=== PATIENT | female | born 1995 ===

== ENCOUNTER 2021-10-15 20:44 | Emergency (ER) | payer OTHER, SELFPAY ==
[2021-10-15 21:01] VITALS: BP 116/77; PULSE 91; RESP 16; TEMP 37.1; O2SAT 99; BMI 32.8
[2021-10-15 21:34] LABS: Strep A Nucleic Acid Negative (Negative)
[2021-10-15 21:36] LABS: COVID-19 Test Negative (Negative)
--- NOTE | 2021-10-15 22:48 | ED_ITS ---
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 Patient is on vaccinated for COVID. No fevers, chills, cough, shortness of breath, chest pain, vomiting, diarrhea Review of Systems Review of Systems: Yes all other systems are reviewed and are negative Constitutional: Constitutional: Reports no additional constitutional complaints, Denies body ache(s), Denies chills, Denies fever(s), Denies headache(s) and Denies weakness Eyes: Eyes: Reports no additional eye complaints and Denies change in vision ENT: Reports system reviewed and no additional complaints, except as documented, Denies dizziness, Reports otalgia, Denies headache(s), Denies nasal congestion, Denies nasal discharge, Denies neck pain and Reports sore throat Cardiovascular: Cardiovascular: Reports no additional cardiovascular complaints, Denies chest pain, Denies leg edema and Denies dyspnea Respiratory: Respiratory: Reports no additional respiratory complaints, Denies cough and Denies dyspnea Gastrointestinal: Gastrointestinal: Reports no additional gastrointestinal complaints, Denies abdominal pain, Denies diarrhea, Denies nausea and Denies vomiting Genitourinary: Genitourinary: Reports no additional female genitourinary complaints and Denies urinary incontinence Musculoskeletal: Musculoskeletal: Reports no additional musculoskeletal complaints, Denies back pain, Denies arthralgias, Denies joint swelling, Denies neck pain, Denies numbness and Denies tingling Integumentary/Breasts: Skin/Breast: Reports system reviewed and no additional complaints, except as docu and Denies rash Neurologic: Reports system reviewed and no additional complaints, except as documented, Denies Abnormal speech present, Denies dizziness, Denies headache(s), Denies numbness, Denies tingling and Denies weakness PMFSH Past Medical History Attestation statement: The following information was validated with the patient. Source: old records reviewed and nursing notes reviewed Social History Social History Advance Directives: No Advance Directives Information Provided: No Patient : No Physical Exam Vital Signs: Vital Signs: Last Vital Signs Temp 98.7 F 10/15/21 21:01 Pulse 91 10/15/21 21:01 Resp 16 10/15/21 21:01 BP 116/77 10/15/21 21:01 Pulse Ox 99 10/15/21 21:01 BMI result Body Mass Index 32.8 Const: General: cooperative, healthy appearing, comfortable and no acute distress Orientation/consciousness: patient oriented x3 Limitations: no limitations HENMT: Head: Yes normal to inspection Ears: hearing grossly normal bilaterally and TM's normal bilaterally General nose exam: Normal external nose present Face and sinus: Yes normal facial exam Mouth: Normal oral and palatal mucosa present Throat: Yes posterior oropharynx normal, Yes tonsils normal and Yes uvula midline Eyes: General: appearance normal, both eyes and all related structures Pupils: Equal, round and reactive pupils present Neck: Neck: Yes normal visual inspection, Yes full ROM, Yes no lymphadenopathy and Yes no meningeal signs Chest: Chest palpation & inspection: normal inspection of the chest Resp: Effort & Inspection: normal respiratory effort Auscultation: clear to auscultation bilaterally Cardio: Rate: regular rate Rhythm: regular rhythm Peripheral pulses: Peripheral pulses 2+ throughout GI: Inspection: Yes normal to inspection Palpation (GI): Soft to palpation and nontender Auscultation: normal bowel sounds Back/Spine/Pelvis: Thoracic/Lumbar Spine: thoracic and lumbar spine normal to inspection Skin: General skin exam: no rashes or lesions noted Neuro: General: patient oriented x3, no meningeal signs, no focal motor deficits and normal sensation to monofilament Cranial nerves: Yes Equal, round and reactive pupils present Cognition (Neuro): normal cognition Speech: No Abnormal speech present Gait exam (Neuro): Normal gait present Motor exam (neuro): 5/5 motor strength present throughout Extrem: General: Yes normal to inspection, Yes no pedal edema and Yes no calf tenderness Course Course Course Narrative: 26-year-old female here with complaints of sore throat and bilateral ear pain 2 days. Exam is benign. Vitals are stable. Rapid strep and COVID are negative. Likely viral syndrome. Reviewed worrisome signs and symptoms of when to return to the emergency department. Comfortable discharge home. Medical Decision Making Medical Records Medical records reviewed: Yes I reviewed the patient's medical records. Lab Data Lab results reviewed: Yes I reviewed the patient's lab results. Labs: Lab Results 10/15/21 10/15/21 Range/Units 21:14 21:14 COVID-19 (SABRINA) Negative (Negative) COVID-19 Clin Com See Note S. pyogenes GrpA ALIYAH Negative (Negative) Discharge Plan Discharge Clinical Impression: Acute viral syndrome Patient Disposition: Home, Self-Care Instructions: Viral Syndrome (ED) Additional Instructions: Covid test is negative Increase fluids, rest Motrin or tylenol for pain or fever Referrals: Physician,Unknown J [Primary Care Provider] - 2 days
== END 2021-10-15 23:45 | disposition home or self-care (01) ==
LOC: HO.ED 23:07
PROVIDERS: Emergency Provider Emergency Medicine
DX: B34.9 Viral infection, unspecified (principal); Z20.822 Contact with and (suspected) exposure to COVID-19; J02.9 Acute pharyngitis, unspecified; H92.03 Otalgia, bilateral
CPT/HCPCS: 87635; 87651; 99283

== ENCOUNTER 2021-11-14 20:20 | Emergency (ER) | payer OTHER, SELFPAY ==
--- NOTE | ~2021-11-14 | XR_ITS ---
EXAMINATION: XR HAND, RIGHT CLINICAL INFORMATION: Right middle finger injury. COMPARISON: None. TECHNIQUE: PA, lateral, and oblique views of the right hand. FINDINGS: No acute fractures or malalignment. Mild nonspecific diffuse soft tissue swelling. No unexpected foreign bodies or subcutaneous air. XR/XR hand RT min 3V IMPRESSION: No acute fractures or malalignment.
[2021-11-14 21:12] VITALS: BP 141/85; PULSE 83; RESP 18; TEMP 36.8; O2SAT 97; BMI 26.6
[2021-11-14] MEDS: Lidocaine HCl 2 % MPF 5 ML VIAL INFILTRATI (22:22)
--- NOTE | 2021-11-14 22:37 | ED_ITS ---
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 Related Data Allergies Allergy/AdvReac Type Severity Reaction Status Date / Time No Known Allergies Allergy Verified 11/14/21 22:14 Review of Systems Review of Systems: Pertinent positives and negatives as stated in HPI 10 point review of systems is otherwise negative. PMFSH Past Medical History Source: nursing notes reviewed Medical History Deaf Social History Social History Advance Directives: No Advance Directives Information Provided: Yes Patient : No Physical Exam Vital Signs: Vital Signs: Last Vital Signs Temp 98.3 F 11/14/21 21:12 Pulse 83 11/14/21 21:12 Resp 18 11/14/21 21:12 BP 141/85 H 11/14/21 21:12 Pulse Ox 97 11/14/21 21:12 BMI result Body Mass Index 26.6 VITAL SIGNS: Reviewed. GENERAL: Well developed, well nourished, in no acute distress. HEAD: Normocephalic/atraumatic EYES: PERRLA, EOMI OROPHARYNX: no oral lesions noted, posterior pharynx clear LUNGS: Normal breath sounds. No adventitious sounds or accessory muscle use. SpO2<97> CARDIOVASCULAR: Regular rate and rhythm without noted murmurs ABDOMEN: Soft, non-tender, non-distended with bowel sounds RIGHT MIDDLE FINGER: Obvious bleeding around the nail bed but nail appears otherwise intact no evidence of deformity, sensation is intact NEUROLOGIC: Alert and oriented x 4. Strength and sensation to light touch were grossly intact x 4. Course Course Course Narrative: 26-year-old female with history and clinical presentation consistent with mild elevation of right middle finger nail bed, a digital block was performed and the fake nail was trimmed down and a portion of the nail was cracked with minimal exposure of the nail bed. Bacitracin was applied to this and it was explained to the patient that she can gently cleanse the area with soap and water but should reapply bacitracin to the nail bed and that she will need to keep that nail wrapped until the no begins to grow and filll in the nail bed. Procedures Nail Trephination Time out: No Location (finger): right Location (toes): third digit Sterile prep: other Procedure successful: Yes Patient tolerated procedure: No Complications Complications: bleeding Nerve Block Nerve Block 1: Time out performed: No Local Anesthetic: lidocaine 2% Amount of anesthesia used (mL): 5 Nerve Blocks: digital Procedure Successful: Yes Patient Tolerated Procedure: well and no complications Complications: bleeding Discharge Plan Discharge Clinical Impression: Injury of nail bed of finger Patient Disposition: Home, Self-Care Instructions: Nail Removal (ED), Nail Avulsion (ED) Additional Instructions: 1. May cleanse area with soap and water. 2. Re-apply antibiotic ointment to the exposed nail bed. 3. Keep pain under control with over the counter Tylenol/Ibuprofen, ice, and keep finger elevated when possible. 4. Follow up with your primary care provider. Return to the ER for any worsening of symptoms. Referrals: Enriqueta Olivares, [facility] [Primary Care Provider] - 2 days
[2021-11-14] MEDS: Ibuprofen 400 MG TABLET PO (23:20)
[2021-11-14] MEDS: Acetaminophen 325 MG TABLET 975 MG PO (23:20)
[2021-11-14] MEDS: Bacitracin Oint 14 GM TUBE 1 APPL TOPICAL (23:26)
--- NOTE | 2021-11-14 23:26 | PC.NURSE ---
PT MIDDLE FINGER NAIL BED CLEANED AND NAIL REMOVED PARTIAL NAIL BY DR NEUMANN. DSD APPLIED WITH ANTIBIOTIC OINTMENT.
== END 2021-11-14 23:29 | disposition home or self-care (01) ==
PROVIDERS: Emergency Provider Student in an Organized Health Care Education/Training Program; PCP Nurse Practitioner Family
DX: S61.302A Unspecified open wound of right middle finger with damage to nail, initial encounter (principal); W22.03XA Walked into furniture, initial encounter; Y93.89 Activity, other specified; Y92.039 Unspecified place in apartment as the place of occurrence of the external cause; Y99.9 Unspecified external cause status
CPT/HCPCS: 11740; 64450; 73130; 99283; 99284

== ENCOUNTER 2023-04-24 11:31 | Outpatient (REF) | payer MEDICAID, SELFPAY ==
[2023-04-24 14:06] LABS: Estimated Average Glucose 111 mg/dL; Hemoglobin A1c % 5.5 %
[2023-04-24 14:08] LABS: Alanine Aminotransferase 110 U/L (0-31); Albumin Level 4.3 g/dL (3.5-5.0); Alkaline Phosphatase 118 U/L (39-117); Aspartate Amino Transferase 58 U/L (5-31); Bilirubin Direct < 0.2 mg/dL (0.0-0.5); Bilirubin Total 0.1 mg/dL (0.0-1.0); Cholesterol 283 mg/dL; HDL Cholesterol 34 mg/dL; LDL Cholesterol Calculated 193 mg/dl; Total Protein 7.3 g/dL (6.5-8.0); Triglycerides 284 mg/dL
[2023-04-24 14:23] LABS: Vitamin D 25-OH Total 18.6 ng/mL (>30)
== END 2023-04-24 11:32 | disposition home or self-care (01) ==
LOC: HO.HHCL 11:31
PROVIDERS: Visit Provider Family Medicine
DX: R74.01 Elevation of levels of liver transaminase levels (principal); R73.03 Prediabetes; E78.5 Hyperlipidemia, unspecified; E55.9 Vitamin D deficiency, unspecified
CPT/HCPCS: 36415; 80061; 80076; 82306; 83036

== ENCOUNTER 2023-05-20 12:24 | Outpatient (REF) | payer MEDICAID, SELFPAY ==
[2023-05-20 14:41] LABS: Alanine Aminotransferase 97 U/L (0-31); Albumin Level 4.4 g/dL (3.5-5.0); Alkaline Phosphatase 113 U/L (39-117); Aspartate Amino Transferase 38 U/L (5-31); Bilirubin Direct 0.1 mg/dL (0.0-0.5); Bilirubin Total 0.3 mg/dL (0.0-1.0); Total Protein 7.6 g/dL (6.5-8.0)
[2023-05-20 14:42] LABS: Ferritin 69 ng/mL (10-122)
[2023-05-21 05:59] LABS: HBS Num1 1.31 mIU/mL (0-7.99); HBc Num1 0.94 S/CO (0.00-0.79); HBsAGNum1 0.37 S/CO (0.00-0.99); Hepatitis B Surface Antigen Negative (Negative); ~HepC Num1 0.08 S/CO (0.00-0.79); ~Hepatitis B Surface Antibody NONREACTIVE (Nonreactive); ~Hepatitis C Antibody Nonreactive (Nonreactive)
[2023-05-21 07:09] LABS: HBc Num2 0.95 S/CO; HBc Num3 0.95 S/CO; Hepatitis B Core Antibody Nonreactive (Nonreactive)
[2023-05-25 13:48] LABS: SM/Ribonucleoprotein Ab <1.0 NEG AI (<1.0 NEG); Smith Protein <1.0 NEG AI (<1.0 NEG)
== END 2023-05-20 12:25 | disposition home or self-care (01) ==
LOC: HO.HHCL 12:24
PROVIDERS: Visit Provider Family Medicine
DX: R74.01 Elevation of levels of liver transaminase levels (principal)
CPT/HCPCS: 36415; 80076; 82728; 86235; 86704; 86706; 86803; 87340

== ENCOUNTER 2023-06-02 08:33 | Outpatient (REF) | payer MEDICAID, SELFPAY ==
--- NOTE | ~2023-06-02 | US_ITS ---
EXAMINATION: US ABDOMEN COMPLETE CLINICAL INFORMATION: Elevated liver transaminase levels. COMPARISON: None available. TECHNIQUE: Real-time imaging of the abdominal viscera. FINDINGS: PANCREAS: Not well visualized due to bowel gas ABDOMINAL AORTA: The proximal, mid, and distal segments are normal in caliber. INFERIOR VENA CAVA: Visualized portions are normal. LIVER: Liver echotexture is slightly increased. Liver is contour.. No focal hepatic lesion. There is no intrahepatic biliary duct dilatation seen. GALLBLADDER: Normal. The gallbladder is physiologically distended without evidence of stones, sludge, polyps, wall thickening or pericholecystic fluid. COMMON BILE DUCT: Normal in caliber measuring 0.24 cm in diameter. RIGHT KIDNEY: Normal. No hydronephrosis. No renal calculi or focal parenchymal lesions. The kidney measures 11.5 cm in maximum dimension. LEFT KIDNEY: Normal. No hydronephrosis. No renal calculi or focal parenchymal lesions. The kidney measures 11.1 cm in maximum dimension. SPLEEN: Normal. The spleen measures 10.3 cm in maximum dimension. FREE FLUID: None. US/US abdomen complete IMPRESSION: Slowly echogenic liver probably representing mild fatty infiltration. Limited visualization of the pancreas
== END 2023-06-02 08:34 | disposition home or self-care (01) ==
LOC: HO.US 08:33
PROVIDERS: Visit Provider Family Medicine
DX: R74.01 Elevation of levels of liver transaminase levels (principal)
CPT/HCPCS: 76700

== ENCOUNTER 2023-07-27 18:32 | Emergency (ER) | payer MEDICAID, SELFPAY ==
--- NOTE | 2023-07-27 19:19 | ED_ITS ---
HPI - General Adult General Chief complaint: Upper Respiratory Symptoms Stated complaint: ?Covid Time Seen by Provider: 07/27/23 21:36 Source: patient Mode of arrival: ambulatory Limitations: no limitations History of Present Illness HPI narrative: 28 yo female no sig PMH not UTD on covid shots here with family of 4 has sore throat since Thursday but eating and drinking normally no CP/SOB. has COVID concerned for covid as well. MD complaint: URI symptoms Onset (ago): day(s) (started Thursday ) Location: mouth Radiation: non-radiation Severity: mild Quality: aching Pain Consistency: intermittent Relieving factors: none Exacerbating factors: other (swallowing) Associated symptoms: denies other symptoms Treatments prior to arrival: none Related Data Allergies Allergy/AdvReac Type Severity Reaction Status Date / Time No Known Allergies Allergy Verified 11/14/21 22:14 Review of Systems Review of Systems: Constitutional : no Fever, no Chills, no fatigue, no Malaise ENT/Mouth : no sore throat, positive runny nose Eyes: No Discharge Cardiovascular : No Chest Pain, No SOB Respiratory : pos Cough, No Sputum Gastrointestinal : No Nausea, No Vomiting, No Diarrhea Genitourinary : No Dysuria, No Urinary Frequency Musculoskeletal : no Myalgia Skin : No rash Neuro : No Headache All other systems reviewed and are negative [facility] Past Medical History Medical History Deaf Social History Social History (Updated 07/27/23 @ 22:16 by María White DO) Patient Tobacco Use Status: Never used Tobacco Physical Exam ED Vital Signs: Vital Signs - 24 hr 07/27/23 19:27 Temperature 98.0 F Pulse Rate 81 Respiratory Rate 18 Blood Pressure 134/89 Pulse Oximetry 97 Oxygen Delivery Method Room Air BMI result Body Mass Index 34.2 Appearance: Alert. Oriented X3. No acute distress. Eyes: Pupils equal, round and reactive to light. ENT: Pharynx normal. TMs normal bilaterally Neck: Normal inspection. Neck supple. CVS: Normal heart rate and rhythm. Pulses normal. Respiratory: No respiratory distress. Breath sounds normal. Abdomen: Soft and nontender. Skin: Skin warm and dry. Normal skin color. Normal skin turgor. Extremities: No lower extremity edema. Neuro: Oriented X 3. No motor deficit. No sensory deficit. Course Course Course Narrative: This is an RME: Additional HPI, ROS, PE not included below will be deferred to primary provider. This is a [id number] (ASL) presenting to the emergency department with complaints of sore throat. +sick contacts with covid at home. No fever or cough. Plan: COVID/RSV/FLU, strep test Medical Decision Making Medical Decision Making MDM Narrative: 28 yo female hx of hearing impaired not UTD on covid here with c/o sore throat since Thursday - normal VS, eating and drinking in ED - hsuband has COVID here with ?if she and children are positive at this time well hydrated, clear lungs will send off test and DC home. Differential Diagnosis Differential Diagnoses: The differential diagnosis associated with the presentation includes URI, covid, viral infection Admission/Observation Consideration of admission/observation: Escalation of care including admission/observation considered not toxic, stable VS, no hypoxia - send home with precautions Lab Data MDM Lab Attestation statement: I reviewed the patient's lab results. Labs: Lab Results 07/27/23 Range/Units 19:43 Influenza Type A (PCR) NEGATIVE (Negative) Influenza Type B (PCR) NEGATIVE (Negative) RSV RNA Qual (PCR) NEGATIVE (Negative) SARS-CoV-2 RNA (RT-PCR) NEGATIVE (Negative) S. pyogenes GrpA ALIYAH Negative (Negative) Independent Historian Clinical information obtained from an independent historian. History obtained from or confirmed by: Spouse Discharge Plan Discharge Clinical Impression: Upper respiratory infection Qualifiers: URI type: unspecified URI Qualified Code(s): J06.9 - Acute upper respiratory infection, unspecified Patient Disposition: Home, Self-Care Instructions: Upper Respiratory Infection (ED) Additional Instructions: negative for covid/flu and RSV return for worsening symptoms - chest pain, difficulty breathing inability to eat or drink or any other concerns Stand Alone Forms: Work/School Release
[2023-07-27 19:27] VITALS: BP 134/89; PULSE 81; RESP 18; TEMP 36.7; O2SAT 97; BMI 34.2
[2023-07-27 20:32] LABS: IDNOW Serial# 08D9AD1C; Strep A Nucleic Acid Negative (Negative)
[2023-07-27 20:43] LABS: Influenza A PCR NEGATIVE (Negative); Influenza B PCR NEGATIVE (Negative); Resp Syncy Virus RNA Qual PCR NEGATIVE (Negative); SARS COV2 PCR INHOUSE NEGATIVE (Negative)
[2023-07-27 22:13] VITALS: BP 110/65; PULSE 95; RESP 18; TEMP 36.8; O2SAT 98
[2023-07-28 00:56] VITALS: RESP 20
--- NOTE | 2023-07-28 00:57 | PC.NURSE ---
pt a&ox3. respirations even and unlabored, pt reports wanting to be seen for covid test.
[2023-08-21 08:53] LABS: HPV mRNA E6/E7 rflx Not Detected (Not Detected)
== END 2023-07-28 00:58 | disposition home or self-care (01) ==
PROVIDERS: Family Medicine; Physician Assistant Medical; Emergency Provider Emergency Medicine
DX: J06.9 Acute upper respiratory infection, unspecified (principal); J02.9 Acute pharyngitis, unspecified; Z20.822 Contact with and (suspected) exposure to COVID-19; Z20.828 Contact with and (suspected) exposure to other viral communicable diseases
CPT/HCPCS: 0241U; 0353U; 87651; 99283; 99284

== ENCOUNTER 2023-08-14 | Outpatient (REF) | payer MEDICAID, SELFPAY ==
[2023-08-14 16:19] LABS: CT PCR NOT DETECTED (Not Detect.); NG PCR NOT DETECTED (Not Detect.)
== END 2023-08-14 00:01 | disposition home or self-care (01) ==
LOC: HO.HHCL
PROVIDERS: Visit Provider Family Medicine
DX: Z12.4 Encounter for screening for malignant neoplasm of cervix (principal)
CPT/HCPCS: 0353U; 88142

== ENCOUNTER 2023-08-18 14:15 | Outpatient (REF) | payer MEDICAID, SELFPAY ==
--- NOTE | ~2023-08-18 | XR_ITS ---
EXAMINATION: XR CHEST CLINICAL INFORMATION: SOB, new onset. COMPARISON: None available. TECHNIQUE: 2 views of the chest were obtained. FINDINGS: No significant abnormality is noted involving the heart, lungs, mediastinum, bony thorax or soft tissues. XR/XR chest 2V IMPRESSION: Unremarkable chest examination.
== END 2023-08-18 14:16 | disposition home or self-care (01) ==
LOC: HO.HHCX 14:15
PROVIDERS: Visit Provider Nurse Practitioner Family
DX: R06.02 Shortness of breath (principal)
CPT/HCPCS: 71046

== ENCOUNTER 2023-09-10 10:42 | Outpatient (REF) | payer MEDICAID, SELFPAY ==
[2023-09-10 11:37] LABS: MANUAL DIFF FLAG NO
[2023-09-10 12:03] LABS: Basophils Percent Auto 0.6 % (0-2); Eosinophils Absolute Auto 0.2 X10*3/uL (0.0-0.4); Eosinophils Percent Auto 3.2 % (0-4); Hematocrit 39.9 % (37.0-47.0); Hemoglobin 12.5 g/dl (12.0-16.0); Imm Gran Abs Auto 0.02 X10*3/uL (0.00-0.03); Imm Gran Pct Auto 0.3 % (0.0-0.4); Lymphocytes Absolute Auto 3.2 X10*3/uL (1.2-4.9); Lymphocytes Percent Auto 43.9 % (20-40); Mean Corpuscular HGB Conc 31.3 g/dl (31.0-35.0); Mean Corpuscular Hemoglobin 24.9 pg (27.0-33.0); Mean Corpuscular Volume 79.5 fL (80.0-98.0); Mean Platelet Volume 10.1 fL (9.4-12.3); Monocytes Absolute Auto 0.4 X10*3/uL (0.1-1.2); Monocytes Percent Auto 5.8 % (2-11); Neutrophils Absolute Auto 3.3 x10*3/uL (2.0-8.3); Neutrophils Percent Auto 46.2 % (45-73); Platelet Count 330 X10*3/uL (160-400); Red Blood Count 5.02 X10*6/uL (4.20-5.50); Red Cell Distribution Width 12.9 % (11.0-16.0); White Blood Count 7.2 X10*3/uL (4.8-10.8)
[2023-09-10 12:05] LABS: Estimated Average Glucose 117 mg/dL; Hemoglobin A1c % 5.7 % (<6.0)
[2023-09-10 12:39] LABS: Alanine Aminotransferase 218 U/L (0-31); Albumin Level 4.2 g/dL (3.5-5.0); Alkaline Phosphatase 140 U/L (39-117); Anion Gap 10 (12-20); Aspartate Amino Transferase 82 U/L (5-31); Bilirubin Direct < 0.2 mg/dL (0.0-0.5); Bilirubin Total 0.2 mg/dL (0.0-1.0); Blood Urea Nitrogen 12 mg/dL (9-16); Calcium 9.3 mg/dL (8.4-10.2); Carbon Dioxide 25 mmol/L (22-29); Chloride 108 mmol/L (96-108); Cholesterol 273 mg/dL (<200); Estimated Glomerular Filt Rate > 60; Glucose Random 114 mg/dL (60-115); HDL Cholesterol 38 mg/dL (>40); Magnesium 2.2 mg/dL (1.6-2.6); Potassium 3.8 mmol/L (3.3-5.1); Sodium 139 mmol/L (135-145); TSH reflex Free T4 1.54 uIU/mL (0.32-4.0); Total Protein 7.6 g/dL (6.5-8.0); Triglycerides 421 mg/dL (<150); Vitamin D 25-OH Total 14.2 ng/mL (>30)
== END 2023-09-10 10:43 | disposition home or self-care (01) ==
LOC: HO.HHCL 10:42
PROVIDERS: Visit Provider Family Medicine
DX: E88.810 Metabolic syndrome (principal); R74.01 Elevation of levels of liver transaminase levels; D60.9 Acquired pure red cell aplasia, unspecified; E55.9 Vitamin D deficiency, unspecified
CPT/HCPCS: 36415; 80048; 80061; 80076; 82306; 83036; 83735; 84443; 85025

== ENCOUNTER 2024-01-08 19:57 | Outpatient (REF) | payer MEDICAID, SELFPAY ==
[2024-01-09 13:21] LABS: BV Int Neg Control Negative (Negative); BV Int Pos Control Positive (Positive)
== END 2024-01-08 19:58 | disposition home or self-care (01) ==
LOC: HO.HHCLNP 19:57
PROVIDERS: Visit Provider Emergency Medicine
DX: Z32.00 Encounter for pregnancy test, result unknown (principal)
CPT/HCPCS: 87480; 87510; 87660

== ENCOUNTER 2024-02-03 15:18 | Emergency (ER) | payer MEDICAID, SELFPAY ==
[2024-02-03 15:33] VITALS: BP 106/75; PULSE 95; RESP 18; TEMP 37.2; O2SAT 97; BMI 24.1
--- NOTE | 2024-02-03 15:34 | ED_ITS ---
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 She has been taking Motrin at home. Last dose prior to arrival in ED. She admits to poor PO intake secondary to throat pain. She admits her daughter at home is ill with similar symptoms. No other known sick contacts. Denies difficulty swallowing or difficulty controlling secretions. Denies nausea, vomiting, cough, sputum production, hemoptysis, documented fevers. Related Data Previous Rx's ?Medication ?Instructions ?Recorded benzocaine 15 mg-menthol 2.6 mg 1 bruce mucous membrane Q2-4H PRN 02/03/24 lozenges (Cepacol Sore Throat sore throat #16 ea (benzocaine-menthol)) penicillin V potassium 500 mg 500 mg PO BID 10 days #20 tabs 02/03/24 tablet Allergies Allergy/AdvReac Type Severity Reaction Status Date / Time No Known Allergies Allergy Verified 02/03/24 15:34 Review of Systems Review of Systems: Constitutional: No fever, chills, fatigue, night sweats, weight changes ENT/Mouth: No ear pain, hearing loss, nasal congestion, sinus pain, rhinorrhea, +sore throat, +odynophagia, No dysphagia Eyes: No eye pain, swelling, redness, vision changes, discharge Cardio: No chest pain, palpitations, THOMSON, orthopnea, peripheral edema Pulm: No SOB, cough, sputum, wheezing, dyspnea, hemoptysis GI: No nausea, vomiting, hematemesis, abdominal pain, diarrhea, constipation, hematochezia, melena : No irregular bleeding, dysuria, frequency, urgency, hesitancy, hematuria, flank pain MSK: No back pain, neck pain, joint pain, myalgias Skin: No lesions, rashes Neuro: No weakness, numbness, paresthesias, LOC, dizziness, headache All other systems reviewed and are negative. [facility] Past Medical History Attestation statement: The following information was validated with the patient. Source: old records reviewed and nursing notes reviewed Medical History Deaf Social History Social History Patient Tobacco Use Status: Never used Tobacco Advance Directives: No Advance Directives Information Provided: No Do you have a plan to hurt others: No Plan Physical Exam ED Vital Signs: Vital Signs - 24 hr 02/03/24 15:33 02/03/24 17:27 Temperature 98.9 F 98.9 F Pulse Rate 95 95 Respiratory Rate 18 18 Blood Pressure 106/75 106/75 Pulse Oximetry 97 97 Oxygen Delivery Method Room Air Room Air BMI result Body Mass Index 24.1 Vital signs stable, afebrile Const General: cooperative, healthy appearing, comfortable, no acute distress, alert and awake Orientation/consciousness: patient oriented x3 Limitations: no limitations HENMT Other: + posterior oropharynx erythematous, no edema, uvula is midline, no tonsilar exudates or peritonsillar masses, controlling secretions and speaking in complete sentences. Head: Yes normal to inspection, Yes normocephalic and Yes atraumatic Ears: hearing grossly normal bilaterally, external ears normal, TM's normal b ilaterally, EAC's normal, mastoids normal and no periauricular adenopathy General nose exam: Normal external nose present and No nasal discharge present Face and sinus: Yes normal facial exam and Yes sinuses nontender Eyes General: appearance normal, both eyes and all related structures Pupils: Equal, round and reactive pupils present Neck Other: + no cervical, submandibular or submental LAD. Neck: Yes normal visual inspection and Yes full ROM Resp Effort & Inspection: normal respiratory effort and able to speak in complete se ntences Auscultation: clear to auscultation bilaterally Cardio Rate: regular rate Rhythm: regular rhythm GI Inspection: Yes normal to inspection Palpation (GI): Soft to palpation and nontender Skin General skin exam: no rashes or lesions noted Neuro General: patient oriented x3, gait normal and moves all extremities Cranial nerves: Yes Equal, round and reactive pupils present Extrem General: Yes normal to inspection Course Course Course Narrative: This is a Rapid Medical Examination (RME) performed by Amy Tolentino PA-C in triage. Full HPI, ROS, assessment and treatment plan per primary provider in the Main ED. 28-year-old female here for eval of sweats, generalized weakness, subjective fevers, sore throat x2 days. Her daughters are also ill at home with similar symptoms. Endorses poor p.o. intake due to throat pain. Able to swallow. On exam, bilateral tonsillar hypertrophy and exudates. controlling secretions. Plan: viral and strep swabs ordered. Reevaluation(s) Reevaluation #1: [id number]-- patient has tested positive for strep pharyngitis. She is tested negative for COVID, flu, RSV. These results are consistent with exam findings. Discussed all results with patient. Will send penicillin and Cepacol throat lozenges to pharmacy. She verbalizes understanding. She has been able to tolerate p.o. intake while in ED. Patient has remained stable throughout ED visit today. Discussed worrisome signs and symptoms and when to return to the ED. All questions answered at this time. Patient is agreeable with disposition and stable for discharge. Medical Decision Making Medical Decision Making [facility] Narrative: 28-year-old female with no significant past medical history presents to the ED today for evaluation of generalized weakness, subjective fevers, and sore throat x2 days. Vital signs stable, afebrile. She is nontoxic appearing in no acute distress. On exam, posterior oropharynx erythematous. There is bilateral hypertrophy and tonsillar exudates. Uvula midline. Controlling secretions. Bilateral EACs and TMs intact. Lungs are CTA bilaterally. Differential diagnosis includes viral syndrome, strep pharyngitis. Low suspicion for mono, bronchitis, pneumonia, CONSUMER SERVICES ADVISOR, retropharyngeal abscess, epiglottitis, ARDS. Plan for viral serology and strep swab. Differential Diagnosis Differential Diagnoses: The differential diagnosis associated with the presentation includes as above. Admission/Observation Not indicated Lab Data [facility] Lab Attestation statement: I reviewed the patient's lab results. as above Labs: Lab Results 02/03/24 Range/Units 15:40 Influenza Type A (PCR) NEGATIVE (Negative) Influenza Type B (PCR) NEGATIVE (Negative) RSV RNA Qual (PCR) NEGATIVE (Negative) SARS-CoV-2 RNA (RT-PCR) NEGATIVE (Negative) S. pyogenes GrpA ALIYAH Positive A (Negative) External Record Review External record reviewed: Inpatient record Prescription Management I considered prescription management with: Pain Medication and Antibiotic Critical Care Time Critical Care Time Critical Care Time: No Discharge Plan Discharge Clinical Impression: Acute streptococcal pharyngitis Patient Disposition: Home, Self-Care Instructions: Strep Throat (ED) Additional Instructions: You were seen in the ED today for evaluation of sore throat. You tested negative for covid, flu, and rsv. You tested positive for strep throat. Penicillin is an antibiotic that has been sent to your pharmacy. Take this twice daily for the next 10 days to treat strep throat. Do not stop taking these antibiotics early or miss any doses as this may cause infection to return or worsen. Cepacol throat lozenges have been sent to your pharmacy to help with throat pain. You may also purchase [id number] chloraseptic spray to numb your throat. Take Tylenol and ibuprofen as needed for body aches or fevers. Make sure to change your toothbrush as this contains bacteria. Strep throat is contagious. If anyone else in your household is exhibiting symptoms, please advise them to come to the ED, urgent care, or to see their primary care provider. Follow up with your primary care provider as needed. Return to the emergency department if your symptoms persist or worsen despite treatment or if you have difficulty swallowing, opening your mouth, or develop a rash. In the case of emergency, call 911.? Prescriptions: New penicillin V potassium 500 mg tablet 500 mg PO BID 10 Days Qty: 20 0RF Cepacol Sore Throat (danielito-men) 15-2.6 mg lozenge 1 bruce mucous membrane Q2-4H PRN (Reason: sore throat) Qty: 16 0RF Referrals: [facility] [Primary Care Provider] - Stand Alone Forms: Work/School Release Interventions: ED Discharge Assessment Last Done: 02/03/24 17:27 Discharge Date/Time: 02/03/24 17:28 Print Language: Peruvian Sign Language
[2024-02-03 16:00] LABS: IDNOW Serial# 08D9AD1C; Strep A Nucleic Acid Positive (Negative)
[2024-02-03 16:55] LABS: Influenza A PCR NEGATIVE (Negative); Influenza B PCR NEGATIVE (Negative); Resp Syncy Virus RNA Qual PCR NEGATIVE (Negative); SARS COV2 PCR INHOUSE NEGATIVE (Negative)
[2024-02-03 17:27] VITALS: BP 106/75; PULSE 95; RESP 18; TEMP 37.2; O2SAT 97
== END 2024-02-03 17:28 | disposition home or self-care (01) ==
PROVIDERS: Physician Assistant Medical; Emergency Provider Emergency Medicine
DX: J02.0 Streptococcal pharyngitis (principal); M79.10 Myalgia, unspecified site; R42 Dizziness and giddiness; R50.9 Fever, unspecified; Z11.52 Encounter for screening for COVID-19; Z20.811 Contact with and (suspected) exposure to meningococcus
CPT/HCPCS: 0241U; 87651; 99282; 99283

== ENCOUNTER 2024-02-23 16:05 | Emergency (ER) | payer MEDICAID, SELFPAY ==
--- NOTE | 2024-02-23 16:34 | ED_ITS ---
HPI - General Adult General Chief complaint: General Medical Stated complaint: throat pain/hard to breathe Time Seen by Provider: 02/23/24 18:21 Source: patient Mode of arrival: ambulatory Limitations: other (patient is deaf, all communication occurred in writing) History of Present Illness ED Provider: Catarina Collier PA-C HPI narrative: Patient is a 28 year old assigned female at with a history of being deaf presenting to the emergency department today with a sore throat and concern for a recurrence of strep throat. Patient writes that she has a continued sore throat. Patient writes that she had strep throat on 02/03/2024, finished her antibiotics, but the sore throat has returned. Patient denies any dizziness, lightheadedness, abdominal pain, nausea, vomiting, fever, chills, blurry vision, double vision, loss of vision, chest pain, difficulty breathing, shortness of breath, back pain, night sweats, pain with urination, increased urinary frequency, increased urinary urgency, blood in her urine or stool, syncope or a near syncopal episode, recent trauma or falls, bowel incontinence, bladder incontinence, bowel retention, bladder retention, or any other complaints at this time. Relieving factors: none Exacerbating factors: none Associated symptoms: denies other symptoms Treatments prior to arrival: none Related Data Previous Rx's ?Medication ?Instructions ?Recorded benzocaine 15 mg-menthol 2.6 mg 1 bruce mucous membrane Q2-4H PRN 02/03/24 lozenges (Cepacol Sore Throat sore throat #16 ea (benzocaine-menthol)) penicillin V potassium 500 mg 500 mg PO BID 10 days #20 tabs 02/03/24 tablet amoxicillin 500 mg capsule 500 mg PO BID 10 days #20 caps 02/23/24 Allergies Allergy/AdvReac Type Severity Reaction Status Date / Time No Known Allergies Allergy Verified 02/23/24 16:44 Review of Systems Constitutional: Constitutional: Reports no additional constitutional complaints, Denies chills, Denies fever(s) and Denies night sweats Eyes: Eyes: Reports no additional eye complaints, Denies blurry vision, Denies change in vision, Denies diplopia, Denies eye discharge, Denies loss of vision and Denies eye pain ENT: Denies dizziness, Reports hearing loss (chronic for patient) and Reports sore throat Cardiovascular: Cardiovascular: Reports no additional cardiovascular complaints, Denies chest pain, Denies lightheadedness, Denies Loss of Consciousness and Denies dyspnea Respiratory: Respiratory: Reports no additional respiratory complaints and Denies dyspnea Gastrointestinal: Gastrointestinal: Reports no additional gastrointestinal complaints, Denies abdominal pain, Denies melena, Denies hematochezia, Denies c hange in bowel habits and Denies change in stool character Genitourinary: Genitourinary: Denies hematuria, Denies urinary frequency, Denies dysuria, Denies urinary incontinence, Denies urinary hesitancy and Denies urinary urgency Musculoskeletal: Musculoskeletal: Reports no additional musculoskeletal complaints, Denies numbness and Denies tingling Neurologic: Denies dizziness, Denies loss of vision, Denies numbness and Denies tingling Psychiatric: Psychiatric: Reports no additional psychiatric complaints Endocrine: Endocrine: Reports no additional endocrine complaints Hematologic/Lymphatic: Hematologic/Lymphatic: Reports no additional hematologic/lymphatic complaints Allergic/Immunologic: Allergic/Immunologic: Reports no additional allergic/immunologic complaints PMFSH Past Medical History Attestation statement: The following information was validated with the patient. Source: old records reviewed and nursing notes reviewed Medical History Deaf Social History Social History Patient Tobacco Use Status: Never used Tobacco Advance Directives: No Advance Directives Information Provided: No Do you have a plan to hurt others: No Plan Physical Exam ED Vital Signs: Vital Signs - 24 hr 02/23/24 16:43 02/23/24 18:38 Temperature 98.2 F 98.2 F Pulse Rate 86 86 Respiratory Rate 18 18 Blood Pressure 118/59 L 118/59 L Pulse Oximetry 94 94 Oxygen Delivery Method Room Air Room Air BMI result Body Mass Index 33.7 Const General: cooperative, no acute distress, alert and awake Nutritional Appearance: well nourished Orientation/consciousness: patient oriented x3 Limitations: no limitations HENMT Head: Yes normal to inspection and Yes atraumatic Ears: external ears normal and other (patient deaf at baseline) General nose exam: Normal external nose present, no nasal discharge noted and no epistaxis Face and sinus: Yes normal facial exam, No abrasion and No laceration Mouth: Normal oral and palatal mucosa present and no drooling Eyes General: appearance normal, both eyes and all related structures Periorbital: periorbital findings normal Eyelids: Yes eyelids normal Conjunctivae: conjunctivae normal Pupils: Equal, round and reactive pupils present EOM: EOMs intact bilaterally Neck Neck: Yes normal visual inspection, Yes full ROM and Yes no lymphadenopathy Chest Chest palpation & inspection: normal inspection of the chest Resp Effort & Inspection: normal respiratory effort and able to speak in complete sentences GI Inspection: Yes normal to inspection Neuro General: patient oriented x3 and moves all extremities Cranial nerves: Yes Equal, round and reactive pupils present Cognition (Neuro): normal cognition Motor exam (neuro): 5/5 motor strength present throughout Sensory Exam: Normal double simultaneous stimulation for sensation Coordination: [id number] test normal Extrem General: Yes normal to inspection, Yes full ROM and Yes capillary refill normal Psych Appearance: grossly normal Mental Status: mental status grossly normal Affect: normal affect Attitude: cooperative Thought process: Normal thought process present Thought content: Normal thought content present Insight: Good insight present (Psych) Course Course Course Narrative: RME performed by Catarina Collier PA-C. Patient is a 28 year old assigned female at presenting to the emergency department with a sore throat and body aches. Patient writes that she has felt generally unwell over the last few days, had strep 3 weeks ago, and is concerned that it has come back. Detailed physical exam and review of systems are deferred to the food counter worker. Swabs ordered. Patient placed back in the waiting room pending room availability and results. Medical Decision Making Medical Decision Making MDM Narrative: Patient is a 28 year old assigned female at with a history of being deaf presenting to the emergency department today with a sore throat. Patient's physical exam was consistent with the patient's baseline. Patient's COVID-19, influenza, and RSV tests were negative. Patient's strep test was positive. I explained my physical exam findings as well as all test results to the patient. I answered all questions asked by the patient. I stressed the importance of the patient taking her medication as prescribed. I stressed the importance of the patient following up with her primary care provider. I stressed the importance of the patient returning to the emergency department immediately if her symptoms were to worsen or if she were to develop any dizziness, shortness of breath, difficulty breathing, chest pain, blurry vision, loss of vision, nausea, vomiting, abdominal pain, fever, chills, back pain, or any other complaints. Patient communicated agreement and understanding with this treatment plan and discharge. Differential Diagnosis Differential Diagnoses: The differential diagnosis associated with the pre sentation includes COVID-19 Influenza RSV Strep pharyngitis Admission/Observation Consideration of admission/observation: Escalation of care including admission/observation considered Patient would have been admitted to the hospital had her work up had any findings where hospital admission was appropriate and her clinical presentation warranted hospital admission. Lab Data [facility] Lab Attestation statement: I reviewed the patient's lab results. My interpretation of these results are in the [facility] Rationale portion of this note. Labs: Lab Results 02/23/24 Range/Units 17:06 Influenza Type A (PCR) NEGATIVE (Negative) Influenza Type B (PCR) NEGATIVE (Negative) RSV RNA Qual (PCR) NEGATIVE (Negative) SARS-CoV-2 RNA (RT-PCR) NEGATIVE (Negative) S. pyogenes GrpA ALIYAH Positive A (Negative) Prescription Management I considered prescription management with: Antibiotic (patient prescribed an antibiotic for strep pharyngitis) Discharge Plan Discharge Clinical Impression: Strep pharyngitis Patient Disposition: Home, Self-Care Instructions: Strep Throat (DC) Additional Instructions: Follow up with your primary care provider. Return to the emergency department immediately if your symptoms worsen or if you develop any dizziness, shortness of breath, difficulty breathing, chest pain, blurry vision, loss of vision, nausea, vomiting, abdominal pain, fever, chills, back pain, or any other comp laints. Prescriptions: New amoxicillin 500 mg capsule 500 mg PO BID 10 Days Qty: 20 0RF No Action penicillin V potassium 500 mg tablet 500 mg PO BID 10 Days Qty: 20 0RF Cepacol Sore Throat (danielito-men) 15-2.6 mg lozenge 1 bruce mucous membrane Q2-4H PRN (Reason: sore throat) Qty: 16 0RF Referrals: [facility] [place] [facility] [place]] (Call to establish and follow up with a primary care provider. If you already have a primary care provider, please follow up with them.) [facility] [place] [facility] [place] Group] [facility] [place] [facility] [[place] Group] Stand Alone Forms: Work/School Release Interventions: ED Discharge Assessment Last Done: 02/23/24 18:38 Discharge Date/Time: 02/23/24 18:39 Print Language: Kos[place] Sign Language
[2024-02-23 16:43] VITALS: BP 118/59; PULSE 86; RESP 18; TEMP 36.8; O2SAT 94; BMI 33.7
[2024-02-23 17:19] LABS: IDNOW Serial# 58CA691E; Strep A Nucleic Acid Positive (Negative)
[2024-02-23 17:51] LABS: Influenza A PCR NEGATIVE (Negative); Influenza B PCR NEGATIVE (Negative); Resp Syncy Virus RNA Qual PCR NEGATIVE (Negative); SARS COV2 PCR INHOUSE NEGATIVE (Negative)
[2024-02-23 18:38] VITALS: BP 118/59; PULSE 86; RESP 18; TEMP 36.8; O2SAT 94
== END 2024-02-23 18:39 | disposition home or self-care (01) ==
PROVIDERS: Physician Assistant Medical; Emergency Provider Emergency Medicine; PCP Family Medicine
DX: J02.0 Streptococcal pharyngitis (principal); Z03.818 Encounter for observation for suspected exposure to other biological agents ruled out
CPT/HCPCS: 0241U; 87651; 99282; 99283

== ENCOUNTER 2024-06-15 11:20 | Outpatient (REF) | payer MEDICAID, SELFPAY ==
[2024-06-15 13:06] LABS: MANUAL DIFF FLAG NO
[2024-06-15 13:24] LABS: Basophils Percent Auto 0.6 % (0-2); Eosinophils Absolute Auto 0.2 X10*3/uL (0.0-0.4); Eosinophils Percent Auto 2.6 % (0-4); Hematocrit 39.7 % (37.0-47.0); Hemoglobin 12.5 g/dl (12.0-16.0); Imm Gran Abs Auto 0.02 X10*3/uL (0.00-0.03); Imm Gran Pct Auto 0.3 % (0.0-0.4); Lymphocytes Absolute Auto 2.5 X10*3/uL (1.2-4.9); Mean Corpuscular HGB Conc 31.5 g/dl (31.0-35.0); Mean Corpuscular Hemoglobin 25.2 pg (27.0-33.0); Mean Corpuscular Volume 79.9 fL (80.0-98.0); Mean Platelet Volume 10.2 fL (9.4-12.3); Monocytes Absolute Auto 0.3 X10*3/uL (0.1-1.2); Monocytes Percent Auto 4.9 % (2-11); Neutrophils Absolute Auto 3.5 x10*3/uL (2.0-8.3); Neutrophils Percent Auto 53.6 % (45-73); Platelet Count 342 X10*3/uL (160-400); Red Blood Count 4.97 X10*6/uL (4.20-5.50); Red Cell Distribution Width 12.7 % (11.0-16.0); White Blood Count 6.6 X10*3/uL (4.8-10.8)
[2024-06-15 13:59] LABS: Estimated Average Glucose 117 mg/dL; Hemoglobin A1c % 5.7 % (<6.0)
[2024-06-15 14:10] LABS: Alanine Aminotransferase 134 U/L (0-31); Albumin Level 4.3 g/dL (3.5-5.0); Alkaline Phosphatase 113 U/L (39-117); Anion Gap 13 (12-20); Aspartate Amino Transferase 57 U/L (5-31); Bilirubin Direct < 0.2 mg/dL (0.0-0.5); Bilirubin Total 0.2 mg/dL (0.0-1.0); Blood Urea Nitrogen 10 mg/dL (9-16); Calcium 9.5 mg/dL (8.4-10.2); Carbon Dioxide 23 mmol/L (22-29); Chloride 107 mmol/L (96-108); Cholesterol 278 mg/dL (<200); Estimated Glomerular Filt Rate > 60; Glucose Random 125 mg/dL (60-115); HDL Cholesterol 42 mg/dL (>40); LDL Cholesterol Calculated 163 mg/dL (<100); Magnesium 2.1 mg/dL (1.6-2.6); Potassium 3.6 mmol/L (3.3-5.1); Sodium 139 mmol/L (135-145); TSH reflex Free T4 1.16 uIU/mL (0.32-4.0); Total Protein 7.6 g/dL (6.5-8.0); Triglycerides 369 mg/dL (<150); Vitamin D 25-OH Total 27.6 ng/mL (>30)
[2024-06-16 19:08] LABS: Rubella IgG Antibody >33.00 Index
[2024-06-18 16:24] LABS: TS Negative Control Passed; TS Panel A 0; TS Panel B 0; TS Positive Control Passed; TSpotTB Negative (Negative)
== END 2024-06-15 11:21 | disposition home or self-care (01) ==
LOC: HO.HHCL 11:20
PROVIDERS: Visit Provider Family Medicine
DX: E88.810 Metabolic syndrome (principal); D50.9 Iron deficiency anemia, unspecified; Z01.84 Encounter for antibody response examination; E55.9 Vitamin D deficiency, unspecified; R74.01 Elevation of levels of liver transaminase levels
CPT/HCPCS: 36415; 80048; 80061; 80076; 82306; 83036; 83735; 84443; 85025; 86481; 86735; 86762; 86765; 86787

== ENCOUNTER 2024-07-04 10:49 | Emergency (ER) | payer MEDICAID, SELFPAY ==
[2024-07-04 11:38] VITALS: BP 102/53; PULSE 76; RESP 18; TEMP 36; O2SAT 96; BMI 36.6
--- NOTE | 2024-07-04 11:40 | ED_ITS ---
HPI - Eye Problem General Chief complaint: Eye Problems Stated complaint: eye pain Time Seen by Provider: 07/04/24 11:43 Source: patient, family and associate chief nurse Mode of arrival: ambulatory Limitations: no limitations History of Present Illness ED Provider: Rufina Davis PA-C HPI Narrative: 28 yo female presenting for evaluation of right eye pain, redness and swelling for the last 3-4 days. she reports symptoms have been worsening. unable to sleep due to the pain. no drainage. no FB sensation. pain and swelling involve the right lower eyelid. it is red and painful. chief complaint: eye pain and eye redness Onset (ago): day(s) Onset description: gradual Duration: progressively worsening Location: right eye Eye Symptoms: redness Place: home Mechanism: none Severity: moderate If Pain, Quality: aching and throbbing Associated symptoms: none Treatments Prior to Arrival: none Related Data Patient tetanus UTD: Yes Previous Rx's ?Medication ?Instructions ?Recorded benzocaine 15 mg-menthol 2.6 mg 1 bruce mucous membrane Q2-4H PRN 02/03/24 lozenges (Cepacol Sore Throat sore throat #16 ea (benzocaine-menthol)) penicillin V potassium 500 mg 500 mg PO BID 10 days #20 tabs 02/03/24 tablet amoxicillin 500 mg capsule 500 mg PO BID 10 days #20 caps 02/23/24 amoxicillin 875 mg-potassium 1 tab PO BID #14 tabs 07/04/24 clavulanate 125 mg tablet erythromycin 5 mg/gram (0.5 %) eye 0.5 inch ophthalmic (eye) BID 7 07/04/24 ointment days #3.5 grams ibuprofen 600 mg tablet 600 mg PO Q8H PRN pain #14 tabs 07/04/24 Allergies Allergy/AdvReac Type Severity Reaction Status Date / Time No Known Allergies Allergy Verified 07/04/24 11:44 Review of Systems Review of Systems: Yes all other systems are reviewed and are negative [facility] Past Medical History Medical History Deaf Social History Social History Patient Tobacco Use Status: Never used Tobacco Advance Directives: No Advance Directives Information Provided: Yes Physical Exam Vital Signs: Vital Signs: Last Vital Signs Temp 96.8 F 07/04/24 13:16 Pulse 76 07/04/24 13:16 Resp 18 07/04/24 13:16 BP 102/53 L 07/04/24 13:16 Pulse Ox 96 07/04/24 13:16 O2 Del Method Room Air 07/04/24 13:16 BMI result Body Mass Index 36.6 Appearance: Alert. Oriented X3. No acute distress. HEENT: right lower eyelid with moderate swelling, erythema extending to the periorbial region, no pustule seen. normal inspection of the right upper eyelid. PERRLA, EOMI, no pain with EOM. mild scleral injection on the right. normal inspection of the left eye and associated structures. CVS: Normal heart rate and rhythm. Pulses normal. Respiratory: No respiratory distress. Skin: Skin warm and dry. Normal skin color. Normal skin turgor. No rashes. Extremities: normal inspection x4, no joint swelling or peripheral edema Neuro: Oriented X 3. grossly normal, nonfocal Medical Decision Making Medical Decision Making MDM Narrative: 28 yo female presenting for evaluation of right lower eyelid pain, redness and swelling for the last 3-4 days. exam is c/w external hordeolum although preseptal cellulitis could present in a similar way. will treat with topical and oral antibiotics. importance of warm compresses and close outpatient follow up d/w patient. stable for d/c home. Differential Diagnosis Differential Diagnoses: The differential diagnosis associated with the presentation includes stye, chalazion, preseptal cellulitis, orbital cellulitis Independent Historian Clinical information obtained from an independent historian. History obtained from or confirmed by: Spouse External Record Review External record reviewed: Prior outpatient labs Tests considered The following testing was considered but not selected: considered CT facial bones however low suspicion for orbital cellulitis Prescription Management I considered prescription management with: Pain Medication and Antibiotic Critical Care Time Critical Care Time Critical Care Time: No Discharge Plan Discharge Clinical Impression: Stye Qualifiers: Laterality: right Eyelid: lower Qualified Code(s): H00.012 - Hordeolum externum right lower eyelid Patient Disposition: Home, Self-Care Instructions: Kaycee (ED) Additional Instructions: Take the prescribed antibiotics as directed, complete the entire course and do not miss any doses Use the topical antibiotic two times per day for 1 week Use warm compresses to the eye several times per day If you develop new or worsening symptoms call 911 or come back to the ER for further evaluation. Prescriptions: New erythromycin 5 mg/gram (0.5 %) ointment 0.5 inch ophthalmic (eye) BID 7 Days Qty: 3.5 0RF ibuprofen 600 mg tablet 600 mg PO Q8H PRN (Reason: pain) Qty: 14 0RF amoxicillin-pot clavulanate 875-125 mg tablet 1 tab PO BID Qty: 14 0RF No Action penicillin V potassium 500 mg tablet 500 mg PO BID 10 Days Qty: 20 0RF Cepacol Sore Throat (danielito-men) 15-2.6 mg lozenge 1 bruce mucous membrane Q2-4H PRN (Reason: sore throat) Qty: 16 0RF amoxicillin 500 mg capsule 500 mg PO BID 10 Days Qty: 20 0RF Stand Alone Forms: Work/School Release Interventions: ED Discharge Assessment Last Done: 07/04/24 13:16 Discharge Date/Time: 07/04/24 13:17 Print Language: [place] Sign Language
[2024-07-04 13:16] VITALS: BP 102/53; PULSE 76; RESP 18; TEMP 36; O2SAT 96
--- NOTE | 2024-07-04 13:17 | PC.NURSE ---
d/c pt and daughter with steamer blocker #[id number]
== END 2024-07-04 13:17 | disposition home or self-care (01) ==
PROVIDERS: Emergency Provider Emergency Medicine; PCP Family Medicine
DX: H00.012 Hordeolum externum right lower eyelid (principal); H57.11 Ocular pain, right eye
CPT/HCPCS: 99282; 99283

== ENCOUNTER 2024-07-27 16:10 | Outpatient (REF) | payer MEDICAID, SELFPAY ==
[2024-07-28 03:16] LABS: CT PCR NOT DETECTED (Not Detect.); NG PCR NOT DETECTED (Not Detect.)
[2024-07-28 11:14] LABS: Bacterial Vaginosis PCR NEGATIVE (Negative); Candida Group PCR NOT DETECTED (Not Detect); Candida glab krusei PCR NOT DETECTED (Not Detect); Trichomonas vaginalis PCR NOT DETECTED (Not Detect)
== END 2024-07-27 16:11 | disposition home or self-care (01) ==
LOC: HO.HHCLNP 16:10
PROVIDERS: Visit Provider Family Medicine
DX: Z20.2 Contact with and (suspected) exposure to infections with a predominantly sexual mode of transmission (principal)
CPT/HCPCS: 0352U; 87491; 87591

== ENCOUNTER 2024-07-28 10:39 | Outpatient (REF) | payer MEDICAID, SELFPAY ==
[2024-07-28 14:13] LABS: Alanine Aminotransferase 191 U/L (0-31); Albumin Level 4.4 g/dL (3.5-5.0); Alkaline Phosphatase 127 U/L (39-117); Aspartate Amino Transferase 88 U/L (5-31); Bilirubin Direct 0.1 mg/dL (0.0-0.5); Bilirubin Total 0.3 mg/dL (0.0-1.0); Cholesterol 284 mg/dL (<200); HDL Cholesterol 42 mg/dL (>40); Iron 143 mcg/dL (30-160); LDL Cholesterol Calculated 192 mg/dL (<100); Percent Iron Saturation 39 % (15-50); Total Iron Binding Capacity 370 mcg/dL (228-428); Total Protein 7.6 g/dL (6.5-8.0); Triglycerides 251 mg/dL (<150); Unsaturated Iron Binding 227 ug/dL
[2024-07-28 14:18] LABS: Ferritin 107 ng/mL (10-122); HCG Quantitative < 2 mIU/mL
[2024-07-29 08:07] LABS: Ceruloplasmin 28 mg/dL (14-48)
[2024-07-29 08:12] LABS: Syphilis Screen Nonreactive (Nonreactive)
[2024-07-29 08:33] LABS: HBS Num1 > 1000.00 mIU/mL (0-7.99); HBc Num1 0.77 S/CO (0.00-0.79); HBsAGNum1 0.37 S/CO (0.00-0.99); HIV AB/AG Nonreactive (Nonreactive); HIV Num 1 0.07 S/CO (0.00-0.99); Hepatitis A Antibody IgM 0.28 Index (0-0.79); Hepatitis B Core Antibody Nonreactive (Nonreactive); Hepatitis B Surface Antigen Negative (Negative); ~HepC Num1 0.16 S/CO (0.00-0.79); ~Hepatitis A Antibody IgM Nonreactive (Nonreactive); ~Hepatitis B Surface Antibody REACTIVE (Nonreactive); ~Hepatitis C Antibody Nonreactive (Nonreactive)
[2024-08-02 10:09] LABS: Mitochondrial Antibodies NEGATIVE (NEGATIVE)
[2024-08-03 05:49] LABS: Smooth Muscle Antibody <20 U (<20)
[2024-08-03 08:18] LABS: Anti Nuclear Antibody Screen NEGATIVE (NEGATIVE)
== END 2024-07-28 10:40 | disposition home or self-care (01) ==
LOC: HO.HHCL 10:39
PROVIDERS: Visit Provider Family Medicine
DX: R74.01 Elevation of levels of liver transaminase levels (principal); Z20.2 Contact with and (suspected) exposure to infections with a predominantly sexual mode of transmission; E78.5 Hyperlipidemia, unspecified
CPT/HCPCS: 36415; 80061; 80076; 82390; 82728; 83540; 84702; 86015; 86038; 86381; 86704; 86706; 86709; 86780; 86803; 87340; 87389

== ENCOUNTER 2024-08-17 15:05 | Outpatient (REF) | payer MEDICAID, SELFPAY ==
[2024-08-17 17:10] LABS: Alanine Aminotransferase 305 U/L (0-31); Albumin Level 4.3 g/dL (3.5-5.0); Alkaline Phosphatase 157 U/L (39-117); Aspartate Amino Transferase 132 U/L (5-31); Bilirubin Direct < 0.2 mg/dL (0.0-0.5); Bilirubin Total 0.2 mg/dL (0.0-1.0); Total Protein 7.5 g/dL (6.5-8.0)
[2024-08-17 17:18] LABS: TSH reflex Free T4 0.98 uIU/mL (0.32-4.0)
[2024-08-18 03:57] LABS: Syphilis Screen Nonreactive (Nonreactive)
[2024-08-18 04:28] LABS: HIV AB/AG Nonreactive (Nonreactive); HIV Num 1 0.06 S/CO (0.00-0.99); ~HepC Num1 0.11 S/CO (0.00-0.79); ~Hepatitis C Antibody Nonreactive (Nonreactive)
[2024-08-20 07:48] LABS: TS Negative Control Passed; TS Panel A 1; TS Panel B 0; TS Positive Control Passed; TSpotTB Negative (Negative)
[2024-08-22 16:23] LABS: Testosterone, Total 133 ng/dL (2-45)
== END 2024-08-17 15:06 | disposition home or self-care (01) ==
LOC: HO.HHCL 15:05
PROVIDERS: Visit Provider Family Medicine
DX: Z11.3 Encounter for screening for infections with a predominantly sexual mode of transmission (principal); R74.01 Elevation of levels of liver transaminase levels; N91.2 Amenorrhea, unspecified; Z11.1 Encounter for screening for respiratory tuberculosis
CPT/HCPCS: 36415; 80076; 84403; 84443; 86481; 86780; 86803; 87389

== ENCOUNTER 2024-11-15 19:52 | Emergency (ER) | payer MEDICAID, SELFPAY ==
--- NOTE | ~2024-11-15 | CT_ITS ---
CLINICAL HISTORY: abd pain, rectal bleed, r o colitis CT abdomen and pelvis without contrast Comparison: None Findings: The lung bases are clear. Unremarkable gallbladder and solid organs. No urolithiasis. No bowel obstruction, pneumoperitoneum, or pneumatosis. Bladder is decompressed. Reproductive organs are unremarkable. Decompressed appendix. No calcified atheromatous plaquing. No adenopathy. The bones are intact. IMPRESSION: No findings within the confines of a noncontrast exam to explain the patient's rectal bleeding. The bowel appears nondilated and noninflamed. This document has been electronically signed by: Eloise Kirkland MD on 11/16/2024 05:45:16
[2024-11-15 20:55] VITALS: BP 111/72; PULSE 81; RESP 18; TEMP 36.7; O2SAT 100; BMI 30.7
--- NOTE | 2024-11-15 21:06 | ED_ITS ---
HPI - General Adult General Chief complaint: GI Bleed Stated complaint: bleeding days X2 Time Seen by Provider: 11/16/24 06:33 Source: patient and snapper on ( Sign language) Mode of arrival: ambulatory Limitations: no limitations History of Present Illness ED Provider: DR. Sahu HPI narrative: 29-year-old female came in for evaluation of rectal bleed for 2-3 days with every bowel movement, and abdominal pain. No fever, no chills, no diarrhea, last bowel movement was Normal this morning , no sick contacts, no nausea, vomiting. Patient described bright red blood per rectum. Related Data Previous Rx's ?Medication ?Instructions ?Recorded benzocaine 15 mg-menthol 2.6 mg 1 bruce mucous membrane Q2-4H PRN 02/03/24 lozenges (Cepacol Sore Throat sore throat #16 ea (benzocaine-menthol)) penicillin V potassium 500 mg 500 mg PO BID 10 days #20 tabs 02/03/24 tablet amoxicillin 500 mg capsule 500 mg PO BID 10 days #20 caps 02/23/24 amoxicillin 875 mg-potassium 1 tab PO BID #14 tabs 07/04/24 clavulanate 125 mg tablet erythromycin 5 mg/gram (0.5 %) eye 0.5 inch ophthalmic (eye) BID 7 07/04/24 ointment days #3.5 grams ibuprofen 600 mg tablet 600 mg PO Q8H PRN pain #14 tabs 07/04/24 Allergies Allergy/AdvReac Type Severity Reaction Status Date / Time No Known Allergies Allergy Verified 11/15/24 21:10 Review of Systems 2 Review of Systems: All other systems are reviewed and are negative Constitutional: Reports as per HPI and Reports no additional constitutional complaints Eyes: Reports as per HPI and Reports no additional eye complaints Reports system reviewed and no additional complaints, except as documented Cardiovascular: Reports as per HPI and Reports no additional cardiovascular complaints Respiratory: Reports as per HPI and Reports no additional respiratory complaints Gastrointestinal: Reports as per HPI and Reports no additional gastrointestinal complaints Genitourinary: Reports no additional female genitourinary complaints Musculoskeletal: Reports no additional musculoskeletal complaints Skin/Breast: Reports system reviewed and no additional complaints, except as docu Psychiatric: Reports no additional psychiatric complaints Endocrine: Reports no additional endocrine complaints Hematologic/Lymphatic: Reports no additional hematologic/lymphatic complaints Allergic/Immunologic: Reports no additional allergic/immunologic complaints Reports system reviewed and no additional complaints, except as documented and Reports Abnormal speech present [facility] Past Medical History Medical History Deaf Social History Social History Patient Tobacco Use Status: Never used Tobacco Smoked in Last 30 Days: No Use of substances other than those prescribed or required for medical reasons: No Advance Directives: No Advance Directives Information Provided: Yes Physical Exam ED Vital Signs: Vital Signs - 24 hr 11/15/24 20:55 11/16/24 04:37 Temperature 98.1 F 97.6 F Pulse Rate 81 64 Respiratory Rate 18 16 Blood Pressure 111/72 113/63 Pulse Oximetry 100 98 Oxygen Delivery Method Room Air Room Air BMI result Body Mass Index 30.7 Vital signs have been reviewed and appear to be correct. Blood pressure elevated. Heart rate normal. Respiratory rate normal. Temperature normal. Oxygen saturation normal. Appearance: Alert. Oriented X3. No acute distress. Head: Normal external exam. Normocephalic. Atraumatic. No Luque signs noted. No raccoon eyes noted Eyes: PERRLA. EOMI. Conjunctiva and sclera normal. Eyelids normal. ENT: TM's Normal. Pharynx normal. Uvula midline. Moist mucous membranes. No trismus noted. No drooling noted. No muffled voice noted. Neck: Normal inspection. Neck supple. FROM. No adenopathy. Thyroid Normal. No meningeal signs. No neck mass noted. CVS: Normal heart rate and rhythm. Heart sound normal. No murmurs noted. Pulses normal throughout. Respiratory: No respiratory distress. Painless inspiration. Breath sounds normal. No wheezes/rales/rhonchi noted. Chest nontender. No accessory muscle usage noted or decreased air movement noted. Abdomen: Soft and nontender. Bowel sounds normal in all 4 quadrants. No distention noted. No organomegaly noted. No visible injury noted. Rectal exam: Brown stool with trace guaiac positive. Back: No CVA tenderness. Full range of motion noted. Skin: Skin warm and dry. Normal skin color. Normal skin turgor. No rashes/lesions/lacerations noted. Extremities: No lower extremity edema. Extremities exhibit normal range of motion. Extremities nontender. Neuro: Oriented X 3. Cranial nerve exam: II-XII are grossly intact No motor deficit. No sensory deficit. Reflexes normal. Course Course Course Narrative: This is an RME: Additional HPI, ROS, PE not included below will be deferred to primary provider. RME assessment and note performed by: Dayna Sorto PA-C This is a 29-year-old female, ASL, who presents emergency department with 2-3 days of rectal bleeding and dizziness. Plan: Labs, further ER evaluation needed. Reevaluation(s) Reevaluation #1: Bright red blood per rectum with abdominal pain, CT abdomen pelvis showing no acute intra-abdominal findings. Patient hemodynamically stable with stable H&H will refer to GI Dr. Monteiro Time: 06:36 Medical Decision Making Differential Diagnosis Differential Diagnoses: The differential diagnosis associated with the presentation includes ( colitis, diverticular disease, electrolyte derangement, severe anemia.) Admission/Observation Consideration of admission/observation: Escalation of care including admission/observation considered Lab Data MDM Lab Attestation statement: I reviewed the patient's lab results. 11/15/24 21:34 11/15/24 21:34 Labs: Lab Results 11/15/24 11/15/24 11/16/24 Range/Units 21:33 21:34 04:58 WBC 7.8 (4.8-10.8) X10*3/uL RBC 5.06 (4.20-5.50) X10*6/uL Hgb 12.8 (12.0-16.0) g/dl Hct 39.4 (37.0-47.0) % MCV 77.9 L (80.0-98.0) fL MCH 25.3 L (27.0-33.0) pg MCHC 32.5 (31.0-35.0) g/dl RDW 12.5 (11.0-16.0) % Plt Count 380 (160-400) X10*3/uL MPV 9.4 (9.4-12.3) fL Immature Gran % (Auto) 0.3 (0.0-0.4) % Neut % (Auto) 49.4 (45-73) % Lymph % (Auto) 41.7 H (20-40) % Hardin % (Auto) 5.8 (2-11) % Eos % (Auto) 2.4 (0-4) % Baso % (Auto) 0.4 (0-2) % Lymph # (Auto) 3.3 (1.2-4.9) X10*3/uL [place]in # (Auto) 0.5 (0.1-1.2) X10*3/uL Eos # (Auto) 0.2 (0.0-0.4) X10*3/uL Baso # (Auto) 0.0 (0.0-0.2) X10*3/uL Abs Immat Gran (auto) 0.02 (0.00-0.03) X10*3/uL Absolute Neuts (auto) 3.9 (2.0-8.3) x10*3/uL Absolute Nucleated RBC 0.000 (0.0-0.012) X10*3/uL Nucleated RBC % (auto) 0.0 (0.0-0.2) /100WBC Sodium 139 (135-145) mmol/L Potassium 4.0 (3.3-5.1) mmol/L Chloride 108 (96-108) mmol/L Carbon Dioxide 21 L (22-29) mmol/L Anion Gap 14 (12-20) BUN 17 H (9-16) mg/dL Creatinine 0.76 (0.5-1.4) mg/dL Estim Creat Clear Calc 120.8 Estimated GFR > 60 Random Glucose 123 H (60-115) mg/dL Calcium 9.4 (8.4-10.2) mg/dL Magnesium 1.8 (1.6-2.6) mg/dL Total Bilirubin 0.1 (0.0-1.0) mg/dL Direct Bilirubin < 0.2 (0.0-0.5) mg/dL AST 52 H (5-31) U/L ALT 131 H (0-31) U/L Alkaline Phosphatase 123 H (39-117) U/L Troponin I High Sens < 2.7 (<3.5-17.0) ng/L Total Protein 8.1 H (6.5-8.0) g/dL Albumin 4.4 (3.5-5.0) g/dL Urine Color Yellow Urine Appearance Cloudy Urine pH 6.0 (5.0-9.0) Ur Specific [place] >= 1.030 H (1.005-1.025) Urine Protein Negative (Neg-Trace) mg/dL Urine Glucose (UA) Negative (Negative) mg/dL Urine Ketones Trace (Negative) mg/dL Urine Blood Negative (Negative) Urine Nitrite Negative (Negative) Ur Leukocyte Esterase Negative (Negative) Urine Test NEGATIVE (NEGATIVE) Stool Occult Blood POSITIVE (NEGATIVE) Influenza Type A (PCR) NEGATIVE (Negative) Influenza Type B (PCR) NEGATIVE (Negative) RSV RNA Qual (PCR) NEGATIVE (Negative) SARS-CoV-2 RNA (RT-PCR) NEGATIVE (Negative) Independent Interpretation I performed an independent interpretation of an: CT Scan ( abdomen and pelvis:No findings within the confines of a noncontrast exam to explain the patient's rectal bleeding. The bowel appears nondilated and noninflamed.) Radiology Impression Discussion of test interpretation with radiology: I have reviewed the radiologist's reading. Discharge Plan Discharge Clinical Impression: Rectal bleed Patient Disposition: Home, Self-Care Instructions: Rectal Bleeding (ED) Prescriptions: No Action penicillin V potassium 500 mg tablet 500 mg PO BID 10 Days Qty: 20 0RF Cepacol Sore Throat (danielito-men) 15-2.6 mg lozenge 1 bruce mucous membrane Q2-4H PRN (Reason: sore throat) Qty: 16 0RF erythromycin 5 mg/gram (0.5 %) ointment 0.5 inch ophthalmic (eye) BID 7 Days Qty: 3.5 0RF ibuprofen 600 mg tablet 600 mg PO Q8H PRN (Reason: pain) Qty: 14 0RF amoxicillin-pot clavulanate 875-125 mg tablet 1 tab PO BID Qty: 14 0RF amoxicillin 500 mg capsule 500 mg PO BID 10 Days Qty: 20 0RF Referrals: Natalia Spring MD [Primary Care Provider] - Divina Monteiro MD [Physician] - Print Language: [place] Sign Language
--- NOTE | 2024-11-15 21:12 | ECG_ITS ---
Test Reason : EKG Blood Pressure : */* mmHG Vent. Rate : 67 BPM Atrial Rate : 67 BPM P-R Int : 140 ms QRS Dur : 82 ms QT Int : 380 ms P-R-T Axes : 26 51 22 degrees QTcB Int : 401 ms Normal sinus rhythm Normal ECG No previous ECGs available Referred By: Dayna Sorto Electronically Signed By: AGUEDA SWEENEY
[2024-11-15 21:39] LABS: MANUAL DIFF FLAG NO
[2024-11-15 21:42] LABS: Basophils Percent Auto 0.4 % (0-2); Eosinophils Absolute Auto 0.2 X10*3/uL (0.0-0.4); Eosinophils Percent Auto 2.4 % (0-4); Hematocrit 39.4 % (37.0-47.0); Hemoglobin 12.8 g/dl (12.0-16.0); Imm Gran Abs Auto 0.02 X10*3/uL (0.00-0.03); Imm Gran Pct Auto 0.3 % (0.0-0.4); Lymphocytes Absolute Auto 3.3 X10*3/uL (1.2-4.9); Lymphocytes Percent Auto 41.7 % (20-40); Mean Corpuscular HGB Conc 32.5 g/dl (31.0-35.0); Mean Corpuscular Hemoglobin 25.3 pg (27.0-33.0); Mean Corpuscular Volume 77.9 fL (80.0-98.0); Mean Platelet Volume 9.4 fL (9.4-12.3); Monocytes Absolute Auto 0.5 X10*3/uL (0.1-1.2); Monocytes Percent Auto 5.8 % (2-11); Neutrophils Absolute Auto 3.9 x10*3/uL (2.0-8.3); Neutrophils Percent Auto 49.4 % (45-73); Platelet Count 380 X10*3/uL (160-400); Red Blood Count 5.06 X10*6/uL (4.20-5.50); Red Cell Distribution Width 12.5 % (11.0-16.0); White Blood Count 7.8 X10*3/uL (4.8-10.8)
[2024-11-15 21:57] LABS: Alanine Aminotransferase 131 U/L (0-31); Albumin Level 4.4 g/dL (3.5-5.0); Alkaline Phosphatase 123 U/L (39-117); Anion Gap 14 (12-20); Aspartate Amino Transferase 52 U/L (5-31); Bilirubin Direct < 0.2 mg/dL (0.0-0.5); Bilirubin Total 0.1 mg/dL (0.0-1.0); Blood Urea Nitrogen 17 mg/dL (9-16); Calcium 9.4 mg/dL (8.4-10.2); Carbon Dioxide 21 mmol/L (22-29); Chloride 108 mmol/L (96-108); Creatinine Clr Calc Pharmacy 120.8; Estimated Glomerular Filt Rate > 60; Glucose Random 123 mg/dL (60-115); Magnesium 1.8 mg/dL (1.6-2.6); Sodium 139 mmol/L (135-145); Total Protein 8.1 g/dL (6.5-8.0)
[2024-11-15 21:57] LABS: Appearance Urine Cloudy; Color Urine Yellow; Glucose Urine UA Negative (Negative); Leukocyte Esterase Urine Negative (Negative); Nitrite Urine Negative (Negative); Specific Gravity - Urine >= 1.030 (1.005-1.025); Urine Blood Negative (Negative); Urine Ketones Trace mg/dL (Negative); Urine Protein Negative (Neg-Trace)
[2024-11-15 21:59] LABS: UPreg QC Valid YES; Urine Pregnancy NEGATIVE (NEGATIVE)
[2024-11-15 22:05] LABS: Troponin-I High Sensitivity < 2.7 ng/L (<3.5-17.0)
[2024-11-15 22:21] LABS: Influenza A PCR NEGATIVE (Negative); Influenza B PCR NEGATIVE (Negative); Resp Syncy Virus RNA Qual PCR NEGATIVE (Negative); SARS COV2 PCR INHOUSE NEGATIVE (Negative)
--- NOTE | 2024-11-16 04:27 | PC.NURSE ---
pt report having rectal bleeding for 2 day, no past hx, abd pain 6/10.
--- OUTSIDE RECORDS SUMMARY | 2024-11-16 04:28 | XMS_ITS | Data Portability ---
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 Post-surgical wound care 146672131 Z48.01 [id number] Joseluis Barboza MD [facility] HEALTH EDUCATOR - [address] [place] [address] 10/27/2017 13:07:34 10/27/2017 14:22:21 Postoperative visit 926120563 Z09 Cholestasi s of [id number] O26.587 [id number] Karely Silva CNM [facility] HEALTH EDUCATOR - [address] [place] [address] 11/13/2017 09:10:57 11/13/2017 12:55:53 state [id number] Z39.2 Health Concerns Section Related Observation LastModified by Organization Detai ls LastModified Time None Recorded Concern Status LastModified by Organization Details LastModified Time None Recorded Advance Directives Directive N: Payers Encounter Date Sequence Insurance Name Policy Number Policy Lr Covered Member ID Lr Member ID Guarantor Name 09/23/2017 1 [employer] [place] ([place]AC[place] - [place]MO[place] [id number] Pawan Chacon [id number] Pawan Chacon 09/23/2017 2 [place] [employer] Pawan Chacon [id number] Pawan Chacon 09/30/2017 1 [employer] [place] ([place] - [place]) [id number] Pawan Chacon [id number] Pawan Chacon 09/30/2017 2 [place] [employer] Pawan Chacon [id number] Pawan Chacon 10/09/2017 1 [employer] [place] [id number] Pawan Chacon [id number] Pawan Chacon 10/09/2017 2 [place] [employer] Pawan Chacon [id number] Pawan Chacon 10/27/2017 2 [place] AARON Chacon [id number] Pawan Chacon 10/27/2017 1 [facility] [id number] Pawan Chacon [id number] Pawan Chacon 11/13/2017 2 [place] AAR[place] [id number] Pawan Chacon 11/13/2017 1 [facility] [place] [facility] (MEDICA[place] HMO) [id number] Pawan Chacon [id number] Pawan Chacon Notes Date Note Type Note Provider Name and Address Organization Details Recorded Time 09/23/2017 text/html see OB episode GONZÁLEZ CALDERON CNM [address], [place], [address], [facility] 09/23/2017 14:15:20 09/30/2017 text/html Patient presents for routine OB visit. See OB Episode for documentation. Sherie Hawk MD [address], [place], [address], [facility] 09/30/2017 14:38:54 10/09/2017 text/html Patient presents for routine OB visit. See OB Episode for documentation.[facility] Hospitalcorrespondence representative Aubrey, #[id number], Pt. feeling well. Some intermittant back pain, some relief with tylenol. Relieved with lying down. No dysuria, SOB or CB. Incision still somewhat painful. Denies fevers, bleeding or exudate from incision. Bleeding wnl. Danny fontana, [facility] 10/09/2017 13:52:22 10/27/2017 text/html VisitReported bypatient.Onset/Sebastian in10/01/2017 c/s Context:feeding choice: bottle pp3 ER F/U, pt went to ER for pain in LEFT upper quadrant, that resolved after tylenol, LFTs noted to be elevated and +gallstones. bp normal. Today presents for follow up, LFT still mildly elevated but reversed. Pt denies any pain no headaches no blurry vision, no vomiting, no GI issues. Pt did have elevated bile acids at delivery and normal LFTS at that time. no post op issues. Joseluis Barboza MD [address], [facility] [address], [place], [address], [facility] 10/27/2017 14:05:54 11/13/2017 text/html VisitReported bypatient.Onset/Sebastian ing:date of delivery: (10/01/17) Karely Silva CNM [address], [facility] [address], [place], [address], [facility] 11/13/2017 15:31:28 OBGyn Episode Ob Episode Information Episode Created Date Number of Fetuses Patient Bloodtype Patient rh Status Prepregnancy Weight lbs Domestic Partner Domestic Partner Phone Father Name Hand Cooper Helper Status 06/17/20 17 1 O Positive 135 Nova Sellers (no phone ) not sure CLOSED Fetus Data First Name Last Name Admitted to NICU Weight (g) Sex Living Outcome Pediatric Complications Fetus ID Race Codes Race Delivery Type 4224.07 55 F true Full Term 9054 Problems Problem Notes late to care25 week chart re view (EDDIE):08/23/17 chart review (junie) plans for contraception Problem Name Start Date End Date Resolution Snomed Code Not e Liver function tests outside reference range 11/05/2017 [id number] After delivery. 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 desires genetics counseling. done Body mass index 30+ - obesity 06/17/2017 [id number] 1st visit at 25 wks, 1 hr glucola ordered and wnl; diet reviewed recommend 1-2#/month wt gain. Serum potassium level below reference range 975561959 Increase pot assium in diet. Alpha trait thalassemia 07/08/2017 [id number] 07/20: partner testing negative (Nova Sellers); 07/15: counseled and rx given; 07/17: CBC resulted, mcv 89.8 ; hgb elect AA Requires varicella vaccination 06/20/2017 [id number] offer pp-not gi reji in the hospital PP History of loss 586280662 at 24 weeks in 2014 Guru Calculation Initial Guru Date Initial Exam Date Initial Exam Provider Initial Ultrasound Date Last Menstrual Period Date Ultra Sound Weeks Gestation 09/29/2017 06/17/2017 02/15/2017 12/20/2016 7 Eighteen To Twenty Week Guru Update Ultra Sound Date Fundal Height At Umbil Quickening Date Ultra Sound Latest Weeks Gestation Final Guru Confirmed By Final Guru Confirmed Date Final Guru Date Ultra Sound Latest Days Gestation 0 [email or web address] 06/17/2017 09/29/19 18 0 Pre-ara Flowsheet Flowsheet Date 06/17/2017 Millan Score Blood Edema Fundus Height Fundus Units Glucose Ketones Leukocytes Nitrite Labor Signs Protein Cervic Dilation Cervic Effacement Cervic Station neg none 27 wks trace negative none neg 0cm 0% Type Weight in lbs Pre/Post Dialysis Refused 172.858378311697 BP Diastolic BP Location Tested BP Systolic BP Type 75 109 Fetus Heart Rate Present A 145 Present Fetus Movement A Yes Comments Patient presents today for i nitial OB visit. P Oriented to md/cnm protocol. labs, testing, u/s, routine visits discussed. Video digital circuit designer used today.Pt and partner worried that she has been emotional and is having anger issues. This was discussed at length with both. explained that mood swings are considered classic changes but pt should not become physically or verbally abusive. Pt referred to fg and to be followed. referred to crisis [facility] should she begin to feel the need to harm self, partner, othersPt is profoundly as is her partner. both describe childhood hearing loss d/t illness and high fever. fob is uncertain about his family hx. both desire genetics counselingAvailability of genetic screening discussed: SMA carrier screen, hemoglobinopathy eval, CF carrier screen, etc. The patient was counseled that genetic testing is not required but is an elective option. Discussed possibility of false negative or positive testing and possible need for partner testing if carrier screening is identified. Counseled if testing is positive we would recommend genetics counseling to discuss further testing as indicated. All questions were answered to her satisfaction Flowsheet Date 06/18/2017 Millan Score Blood Edema Fundus Height Fundus Units Glucose Ketones Leukocytes Nitrite Labor Signs Protein Cervic Dilation Cervic Effacement Cervic Station Type Weight in lbs Pre/Post Dialysis Refused BP Diastolic BP Location Tested BP Systolic BP Type Fetus Heart Rate Present Fetus Movement Comments Pt's phone is not working at this time, so a letter was sent to her to notify her that her potassium is low and to eat a banana daily. [address] [facility] Flowsheet Date 07/01/2017 Millan Score Blood Edema Fundus Height Fundus Units Glucose Ketones Leukocytes Nitrite Labor Signs Protein Cervic Dilation Cervic Effacement Cervic Station Type Weight in lbs Pre/Post Dialysis Refused BP Diastolic BP Location Tested BP Systolic BP Type Fetus Heart Rate Present Fetus Movement Comments Pt. missed her Wattpad US and Infinite Z appt. on 06/30/17. [address] [facility] Flowsheet Date 07/06/2017 Millan Score Blood Edema Fundus Height Fundus Units Glucose Ketones Leukocytes Nitrite Labor Signs Protein Cervic Dilation Cervic Effacement Cervic Station Type Weight in lbs Pre/Post Dialysis Refused BP Diastolic BP Location Tested BP Systolic BP Type Fetus Heart Rate Present Fetus Movement Comments Pt. missed her appt. today , so a new appt. was sent to pt. for 07/15/17 by the placement secretary. [address] [facility] Flowsheet Date 07/15/2017 Millan Score Blood Edema Fundus Height Fundus Units Glucose Ketones Leukocytes Nitrite Labor Signs Protein Cervic Dilation Cervic Effacement Cervic Station neg none 30 cm none negative none trace Type Weight in lbs Pre/Post Dialysis Refused 178.088082795449 BP Diastolic BP Location Tested BP Systolic BP Type 65 112 Fetus Heart Rate Present A 145 Present Fetus Movement A Yes Comments Video installment agent, pt verbalizing good comprehensionreports active baby. denies cxn/show/sromundecided re: contraception, info providedc/o heart burn, comfort self help measures discussedpt has u/s and gc consult tomorrow, given rx and bus infoPt and partner counseled re: alph thal trait and recommendation for partner testing, rx given to partner. Flowsheet Date 07/29/2017 Millan Score Blood Edema Fundus Height Fundus Units Glucose Ketones Leukocytes Nitrite Labor Signs Protein Cervic Dilation Cervic Effacement Cervic Station neg none 35 none negative 1+ Type Weight in lbs Pre/Post Dialysis Refused 178.293807845670 BP Diastolic BP Location Tested BP Systolic BP Type 64 107 Fetus Heart Rate Present A 130 Fetus Movement A Yes Comments tr leuk. complains of heartb urn otherwise no complaints. states she had genetic consult doneo: see above. us 07/16/17 confirms edc 09/29/17 after comparison with early scan.a: 31.1 week iupp: 1. video asl [id number]. discussed relief measures for heartburn. try otc tums. avoid greasy and spicy foods.3. reviewed lab results for deisy sellers cbc and hgb electro. in [place]. results normal4. reviewed 28 week labs5. rto 2 week Flowsheet Date 07/29/2017 Millan Score Blood Edema Fundus Height Fundus Units Glucose Ketones Leukocytes Nitrite Labor Signs Protein Cervic Dilation Cervic Effacement Cervic Station Type Weight in lbs Pre/Post Dialysis Refused BP Diastolic BP Location Tested BP Systolic BP Type Fetus Heart Rate Present Fetus Movement Comments PC to M, spoke to ozzy North to have GC report fax'd to clinic. [id number] Flowsheet Date 08/12/2017 Millan Score Blood Edema Fundus Height Fundus Units Glucose Ketones Leukocytes Nitrite Labor Signs Protein Cervic Dilation Cervic Effacement Cervic Station Type Weight in lbs Pre/Post Dialysis Refused BP Diastolic BP Location Tested BP Systolic BP Type Fetus Heart Rate Present Fetus Movement Comments Pt. missed her appt. today i n the clinic. A new appt. was sent to pt. by the placement secretary for 08/24/17. [address] [facility] Flowsheet Date 08/24/2017 Millan Score Blood Edema Fundus Height Fundus Units Glucose Ketones Leukocytes Nitrite Labor Signs Protein Cervic Dilation Cervic Effacement Cervic Station trace 36 cm none negative none neg Type Weight in lbs Pre/Post Dialysis Refused 185.310033158675 BP Diastolic BP Location Tested BP Systolic BP Type 66 110 Fetus Heart Rate Present A 145 Present Fetus Movement A Yes Comments ASL interpreters #[id number] and [id number]. c/o normal discomforts of , insomnia. is taking advil for insomnia. counseled to discontinue, ibuprofen not recommended in . etiology of intermittent insomnia discussed. reviewed comfort self help measures such as exercise, warm bath, warm milk, etc. pt may take otc tylenol pm on occasion if sx severe. call provider if severe sx insomnia.rtox2, gbs at wv, counseled. contraception discussed again, pt remains undecided.reviewed s/s ptl/when to call. jef cts reviewed, normal acitvity, when to call Flowsheet Date 09/07/2017 Millan Score Blood Edema Fundus Height Fundus Units Glucose Ketones Leukocytes Nitrite Labor Signs Protein Cervic Dilation Cervic Effacement Cervic Station Type Weight in lbs Pre/Post Dialysis Refused BP Diastolic BP Location Tested BP Systolic BP Type Fetus Heart Rate Present Fetus Movement Comments Pt. missed her appt. in the clinic today. A new appt. was sent to pt. by the placement secretary for 09/14/17. [address] [facility] [address] Flowsheet Date 09/08/2017 Millna Score Blood Edema Fundus Height Fundus Units Glucose Ketones Leukocytes Nitrite Labor Signs Protein Cervic Dilation Cervic Effacement Cervic Station Type Weight in lbs Pre/Post Dialysis Refused BP Diastolic BP Location Tested BP Systolic BP Type Fetus Heart Rate Present Fetus Movement Comments Phone call from pt. with # which was an interpretor. Pt. stated that she was sick yesterday and wanted to r/s her appt.. She was notified that a new appt. was sent to her for 09/14/17. 0847 [facility] Flowsheet Date 09/14/2017 Millan Score Blood Edema Fundus Height Fundus Units Glucose Ketones Leukocytes Nitrite Labor Signs Protein Cervic Dilation Cervic Effacement Cervic Station neg 38 none trace 1+ Type Weight in lbs Pre/Post Dialysis Refused 191.765696759524 BP Diastolic BP Location Tested BP Systolic BP Type 69 110 sitting Fetus Heart Rate Present A 130 Fetus Movement A Yes Comments josselin trace.ASL cryacom used.D oing well, no problems. Reports some pressure and irreg contractions.O-FHTs presentsee flowA--IUP at 37 6/7 weeksbraxton hicksdeafP--reports she does not plan to bring correspondence representative with her to . Will utilize cryacom.Review normal changes.GC/CT and GBSf/u in 1 week.reviewed labor precautions. Flowsheet Date 09/23/2017 Millan Score Blood Edema Fundus Height Fundus Units Glucose Ketones Leukocytes Nitrite Labor Signs Protein Cervic Dilation Cervic Effacement Cervic Station neg 39 cm none negative none 1+ Type Weight in lbs Pre/Post Dialysis Refused 192.981712977042 BP Diastolic BP Location Tested BP Systolic BP Type 63 110 Fetus Heart Rate Present A 145 Present Fetus Movement Comments ASL Sign Language interp.#[phone]. Feeling well. +FM. Denies UC, vag bleeding, or LOF. Pt reports severe abdominal itching. Pt denies generalized itching. Does not have plan for ASL interp. in labor. 36 wk cultures reviewed. Pt GBS+. GBS prophylaxis discussed.O=see flowA: IUP at 30 1/7 wks, s=d, EFW 7 1/2 lbs, GBS+, PUPPS, r/o cholestasis P:1. hepatic function panel and bile acids2. Benadryl 25 mg q 4 hrs3. hydrocortisone 1%4. Labor s/s reviewed. Pt advised to call w/ dec FM, UC, vag bleeding or LOF.5. RTO in 1 wk Flowsheet Date 09/30/2017 Millan Score Blood Edema Fundus Height Fundus Units Glucose Ketones Leukocytes Nitrite Labor Signs Protein Cervic Dilation Cervic Effacement Cervic Station none 41 cm none negative none 1+ Type Weight in lbs Pre/Post Dialysis Refused 196.719842251107 BP Diastolic BP Location Tested BP Systolic BP Type 68 97 Fetus Heart Rate Present A 160 Present Fetus Movement A Yes Comments C/O itching all over the bod y with rash since 2 wks. Did not get blood work To OB triage for eval /NST/Bileacids/LFT. SBAR given to Dr. Bruce performed thru ASL/language line Sheldon. Vyas# [id number] Flowsheet Date 10/09/2017 Millan Score Blood Edema Fundus Height Fundus Units Glucose Ketones Leukocytes Nitrite Labor Signs Protein Cervic Dilation Cervic Effacement Cervic Station Type Weight in lbs Pre/Post Dialysis Refused 171.622963544968 BP Diastolic BP Location Tested BP Systolic BP Type 58 116 Fetus Heart Rate Present Fetus Movement Comments Flowsheet Date 10/27/2017 Millan Score Blood Edema Fundus Height Fundus Units Glucose Ketones Leukocytes Nitrite Labor Signs Protein Cervic Dilation Cervic Effacement Cervic Station Type Weight in lbs Pre/Post Dialysis Refused BP Diastolic BP Location Tested BP Systolic BP Type Fetus Heart Rate Present Fetus Movement Comments Phone call to pt. and a mess age will be sent to her to have her come to the clinic for an appt. today for a follow up and if she is unable to come to call me. [address] [facility] Flowsheet Date 10/27/2017 Millan Score Blood Edema Fundus Height Fundus Units Glucose Ketones Leukocytes Nitrite Labor Signs Protein Cervic Dilation Cervic Effacement Cervic Station Type Weight in lbs Pre/Post Dialysis Refused 168.940939550464 BP Diastolic BP Location Tested BP Systolic BP Type 59 98 Fetus Heart Rate Present Fetus Movement Comments Flowsheet Date 11/13/2017 Millan Score Blood Edema Fundus Height Fundus Units Glucose Ketones Leukocytes Nitrite Labor Signs Protein Cervic Dilation Cervic Effacement Cervic Station Type Weight in lbs Pre/Post Dialysis Refused 165.421797155813 BP Diastolic BP Location Tested BP Systolic BP Type 60 107 Fetus Heart Rate Present Fetus Movement Comments Menstrual History Last Menstrual Date Menses Monthly On Bcp Conception Prior Menses Frequency Hcg Plus Date Menarche Onset Age 0312/20/2016 true Genetic Screening And Infection History Question Response Note Cystic Fibrosis false Any Other Genetic History false Augustin Disease false Other Infection History false Thalassemia (Hungarian, Sinhala, Mediterranean, Or Background): MCV < 80 false Patient Or Baby's Father Had A Child With Defects Not Listed Above false Live With Someone With TB Or Exposed To TB false Patient's Age Will Be 35 Years Or Older At Estim ated Date of Delivery false Recurrent Loss, Or A Stillbirth false Patient Or Partner Has History Of Genital Herpes false Mental Retardation/Autism false Maternal Metabolic Disorder (eg, Type 1 Diabetes , PKU) false Prior GBS-infected child false Tom-Sachs (eg, Jehovah'S Witness, Cajun, Wallisian-Turkish) f alse History Of STD, Gonorrhea, Chlamydia, HPV, Syphi lis false History of HIV false History of Hepatitis false Neural Tube Defect (Meningomyelocele, Spina Bifi da, Or Anencephaly) false Hemophilia Or Other Blood Disorders false Estefani's Chorea false Other Inherited Genetic Or Chromosomal Disorder false If Yes, Agent(s) And Strength/Dosage false Sickle Cell Disease Or Trait () false Congenital Heart Defect false Rash Or Viral Illness Since Last Menstrual Perio d false Muscular Dystrophy false Medications (including Suppl ements, Vitamins, Herbs, OTC Drugs), Illicit/Recreational Drugs, Alcohol false Down Syndrome false Plans and Education First Trimester Discussed Date Discussion Item Discussion Note Discuss ed By 06/17/2017 Alcohol [email or web address] 06/17/2017 Intimate partner violence sj ames66 06/17/2017 Educat ion: Risks of formula feeding [place] [address] 06/17/2017 Benefits of Breastfe eding for Six Months: Decreased incidence of childhood obesity [id number] 06/17/2017 Benefits of Breastfe eding for Six Months: Less expensive than formula [id number] 06/17/2017 Weight gain counseling [place] [address]/17/2017 Dental care [place] [address] 06/17/2017 Travel [email or web address] 06/17/2017 Tobacco/smoking cess ation counseling (ask, advise, assess, assist, and arrange) [place] [address] 06/17/2017 Screening for aneuploidy sja [facility] 06/17/2017 Use of any medicatio ns (including supplements, vitamins, herbs, or OTC drugs) [place] [address] 06/17/2017 Toxoplasmosis precau tions (cats/raw meat) [place] [address] 06/17/2017 Avoidance of saunas or hot tubs [place] [address] 06/17/2017 Illicit/recreational drugs [place] [address] 06/17/2017 Indications for ultrasonography [id number] 06/17/2017 Normal body changes [place] [address] 06/17/2017 Educat ion: Importance of int. # [id number] [place] [address] 06/17/2017 Educat ion: Exclusive and benefits 06/17/2017 Benefits of Breastfe eding for Six Months: Decreased incidence of ear infections 06/17/2017 Benefits of Breastfe eding for Six Months: May protect baby from diabetes [email or web address] 06/17/2017 Links to Programs: Children's Futures [place] [address] 06/17/2017 Nutrition counseling ; special diet; dietary precautions (mercury, listeriosis) [place] [address] 06/17/2017 Exercise [place] [address] 06/17/2017 Benefits of Breastfe eding for Six Months: Decreased incidence of allergies 06/17/2017 Normal discomforts of [id number] 06/17/2017 Benefits of Breastfe eding for Six Months: Increased bonding with baby 06/17/2017 Links to Programs: F amily Guidance/PP Depression [place] [address] 06/17/2017 Links to Programs: Handouts [email or web address] Second Trimester Discussed Date Discussion Item Discussion Note Discuss ed By 07/15/2017 Childbirth classes/h ospital facilities [email or web address] 07/15/2017 Tobacco/smoking cess ation counseling (ask, advise, assess, assist, and arrange) [id number] 07/15/2017 Benefits of Breastfe eding for Six Months: Decreased incidence of ear infections [id number] 07/15/2017 Depression screening (when indicated) [id number] 07/15/2017 Intimate partner violence sj ames66 07/15/2017 Benefits of Breastfe eding for Six Months: Decreased incidence of allergies [id number] 07/15/2017 Benefits of Breastfe eding for Six Months: Increased bonding with baby [id number] 07/15/2017 Educat ion: Exclusive and benefits [id number] 07/15/2017 Educat ion: Skin to skin [id number] 07/15/2017 Benefits of Breastfe eding for Six Months: Decreased incidence of childhood obesity [id number] 07/15/2017 Abnormal lab values itxnsg05 07/15/2017 Selecting a care provider [email or web address] 07/15/[address] anning/tubal sterilization [id number] 07/15/2017 Signs and symptoms o f preeclampsia rtdgho01 07/15/2017 Educat ion: Importance of lip reading and writing sriijg10 07/15/2017 Educat ion: Risks of formula feeding 07/15/2017 Benefits of Breastfe eding for Six Months: Less expensive than formula laniqj36 07/15/2017 Benefits of Breastfe eding for Six Months: May protect baby from diabetes spbjly89 07/15/2017 Signs and symptoms o f labor tranws20 07/15/2017 movement monitoring sj ames66 07/15/2017 Links to Programs: Handouts [email or web address] Third Trimester Discussed Date Discussion Item Discussion Note Discuss ed By 09/14/2017 Anesthesia plans 09/14/2017 movement monitoring [id number] [email or web address] 09/14/2017 Intimate partner violence [id number] [email or web address] 09/14/2017 Childbirth classes/h ospital facilities [email or web address] 09/14/2017 Educat ion: Frequent feeding to increase milk [id number] 09/14/2017 Educat ion: Only breast milk for six months [place] [id number] 09/14/2017 Educat ion: Rooming in [place] [address] 09/14/2017 Educat ion: Skin to skin [place] [address] 09/14/2017 Benefits of Breastfe eding for Six Months: Decreased incidence of allergies [place] [address] 09/14/2017 Benefits of Breastfe eding for Six Months: Decreased incidence of childhood obesity [place] [address] 09/14/2017 Plan: Labor support [place] [address] 09/14/2017 Plan: Formula feeding [place] [address] 09/14/2017 Plan: Visitors [place] [address] 09/14/2017 Plan: Plans fo r Admission [place] [address] 09/14/2017 Circumcision [place] [address] 09/14/2017 Tobacco/smoking cess ation counseling (ask, advise, assess, assist, and arrange) [place] [address] 09/14/2017 [place]aton education (n ewborn screening, jaundice, SIDS/safe sleeping position, car seat) [place] [address] 09/14/2017 Selecting a care provider [place] [address] 09/14/2017 Educat ion: Feeding on demand [place] [address] 09/14/2017 Educat ion: Hunger cues [place] [address] 09/14/2017 Educat ion: Non-pharmacologic pain releif [place] [address] 09/14/2017 Educat ion: Risks of formula feeding [place] [address] 09/14/2017 Benefits of Breastfe eding for Six Months: Decreased incident of ear infections [place] [address] 09/14/2017 Benefits of Breastfe eding for Six Months: May protect baby from diabetes [place] [address] 09/14/2017 Benefits of Breastfe eding for Six Months: Less expensive than formula [place] [address] 09/14/2017 Plan: [place] [address] 09/14/2017 Plan: Length of stay [facility] 09/14/2017 Labor signs [place] [address] 09/14/2017 Signs and symptoms o f preeclampsia [place] [address] 09/14/2017 Educat ion: Correct positioning/latch [employer], needs to get a car seat [place] [address] 09/14/2017 depression [place] [id number] 09/14/2017 Educat ion: Exclusive and benefits [place] [address] 09/14/2017 Educat ion: Importance of [email or web address] 09/14/2017 Educat ion: Refer to class [email or web address] 09/14/2017 Plan: Preparat ion for infant 09/14/2017 Links to Programs: Handouts [place] [address] 09/14/2017 family planning/tubal sterilization 09/14/2017 Educat ion: No pacifiers [email or web address] 09/14/2017 Benefits of Breastfe eding for Six Months: Increased bonding with baby 09/14/2017 Plan: Rooming in [facility] s6 Delivery Information Delivery Date Delivery Type Labor Anesthesia Weeks Gestation Incision Type Labor Labor Length Hrs Delivered By Post Complications Tubal Sterilization Discharge Date Comments 8 [facility] false [address] Jabari crespo Discharge Information Feeding Method Contraceptive Method Maternal HG B and HCT Levels Ob Episode Information Episode Created Date Number of Fetuses Patient Bloodtype Patient rh Status Prepregnancy Weight lbs Domestic Partner Domestic Partner Phone Father Name Hand Cooper Helper Status 06/17/20 17 1 CLOSED Fetus Data First Name Last Name Admitted to NICU Weight (g) Sex Living Outcome Pediatric Complications Fetus ID Race Codes Race Delivery Type M Prematur e [id number] Guru Calculation Initial Guru Date Initial Exam Date Initial Exam Provider Initial Ultrasound Date Last Menstrual Period Date Ultra Sound Weeks Gestation 0 Eighteen To Twenty Week Guru Update Ultra Sound Date Fundal Height At Umbil Quickening Date Ultra Sound Latest Weeks Gestation Final Guru Confirmed By Final Guru Confirmed Date Final Guru Date Ultra Sound Latest Days Gestation 0 0 Menstrual History Last Menstrual Date Menses Monthly On Bcp Conception Prior Menses Frequency Hcg Plus Date Menarche Onset Age Delivery Information Delivery Date Delivery Type Labor Anesthesia Weeks Gestation Incision Type Labor Labor Length Hrs Delivered By Post Complications Tubal Sterilization Discharge Date Comments 5 24 [facility], [facility], she didn't know she was Discharge Information Feeding Method Contraceptive Method Maternal HG B and HCT Levels
[2024-11-16 04:37] VITALS: BP 113/63; PULSE 64; RESP 16; TEMP 36.4; O2SAT 98
--- NOTE | 2024-11-16 05:01 | PC.NURSE ---
Provider into assess pt and rectal exam.
[2024-11-16 05:02] LABS: OBS Int Ctl Valid YES; OBS1 POSITIVE (NEGATIVE)
--- NOTE | 2024-11-16 05:12 | PC.NURSE ---
pt taken to ct scan.
--- NOTE | 2024-11-16 05:45 | PC.NURSE ---
pt resting in bed awaiting ct-scan
[2024-11-16 07:01] VITALS: BP 116/60; PULSE 64; RESP 20; TEMP 36.4; O2SAT 98
--- NOTE | 2024-11-16 07:01 | PC.NURSE ---
reviewed discharge instructions with pt. pt verbalized understanding, no sign of distress.
[2024-11-16 07:04] VITALS: BP 116/60; PULSE 64; RESP 20; TEMP 36.4; O2SAT 98
== END 2024-11-16 07:04 | disposition home or self-care (01) ==
PROVIDERS: Physician Assistant Medical; Emergency Provider Emergency Medicine; PCP Family Medicine
DX: K62.5 Hemorrhage of anus and rectum (principal); Z03.818 Encounter for observation for suspected exposure to other biological agents ruled out
CPT/HCPCS: 0241U; 36415; 74176; 80048; 80076; 81003; 81025; 82272; 83735; 84484; 85025; 93005; 99284; 99285

== ENCOUNTER → 2024-11-15 21:12 | Outpatient (BNV) | payer MEDICAID, SELFPAY | PROVIDERS: Emergency Provider Emergency Medicine; PCP Family Medicine; Visit Provider Internal Medicine | DX: Z13.6 Encounter for screening for cardiovascular disorders (principal) | CPT/HCPCS: 93010 ==

== ENCOUNTER → 2024-11-16 04:29 | Outpatient (BNV) | payer MEDICAID, SELFPAY | PROVIDERS: PCP Family Medicine; Visit Provider Radiology Diagnostic Radiology | DX: K62.5 Hemorrhage of anus and rectum (principal); R10.9 Unspecified abdominal pain | CPT/HCPCS: 74176 ==

== ENCOUNTER 2025-08-03 10:16 | Outpatient (REF) | payer MEDICAID, SELFPAY ==
--- OUTSIDE RECORDS SUMMARY | 2025-08-02 11:15 | XMS_ITS | Encounter Summary ---
Author Organization [employer] Address [address] [place] [address] 7 [place] [address] Care Team Providers Care Visual Developer Name Role Phone Natalia Spring MD Primary Care Provider [phone] Reason for Visit * Reason Comments Annual Exam Encounter Details Date Type Department Care Team ([facility] st Contact Info) Description 08/02/2025 11:15 AM EST Office Visit [facility] MEDICINE [address] [place] [address] Natalia Spring MD [address] [place] [address] Dysmetabolic syndrome X (Primary Dx); Iron deficiency anemia, unspecified iron deficiency anemia type; Transaminitis; Prediabetes; Vitamin D deficiency; Dyslipidemia; Routine screening for STI (sexually transmitted infection); Deaf, bilateral; Mild episode of recurrent major depressive disorder (CMS/HCC); Tobacco dependence syndrome; Other specified health status; Dietary counseling; Exercise counseling; Class 1 obesity due to excess calories with serious comorbidity and body mass index (BMI) of 33.0 to 33.9 in adult; Encounter for immunization Social History Tobacco Use Types Packs/Day Years Used Date Smoking Tobacco: Every Day Cigarettes Smokeless Tobacco: Never Depression Answer Date Recorded Patient Health Questionnaire-9 Score 5 08/02/2025 Patient Health Questionnaire-9 Score 5 08/02/2025 Last PHQ-9: Questionnaire Data Not on file 1 10/02/2024 Housing Stability Answer Date Recorded What is your housing situation today? I am not s ure 08/02/[address] you li ve. Do you have problems with any of the following? None of the above 08/02/2025 Food Insecurity Answer Date Recorded Within the past 12 months, y ou worried that your food would run out before you got money to buy more: Never True 2024 Within the past 12 months,th e food you bought just didn't last and you didn't have enough money to get more: Sometimes True 08/02/2025 Transportation Answer Date Recorded In the past 12 months, has l ack of transportation kept you from medical appts, meetings, work or from getting things needed for daily living? No 08/02/2025 Utilities Answer Date Recorded In the past 12 months, has t he electric, gas, oil or water company threatened to shut off services in your home? No 08/02/2025 Depression Answer Date Recorded Patient Health Questionnaire-2 Score 1 08/02/2025 Internet Access Answer Date Recorded Internet Access Q1 I am not sure 08/02/2025 Internet Access Q2 Not on file 08/02/2025 Comments Unknown Intention Date Recorded No desire to become (finding) 1 10/02/2024 Sex and Gender Information Value Date Recorded Sex Assigned at Female 07/28/2022 10:40 AM EDT Legal Sex Female 10:40 AM EDT Gender Identity Female 07/28/2022 10:40 AM EDT Sexual Orientation Choose not to disclose 2021 10:40 AM EDT documented as of this encounter Last Filed Vital Signs Vital Sign Reading Time Taken Comments Blood Pressure 120/82 08/02/2025 11:09 AM EST Pulse 87 08/02/2025 11:09 AM EST Temperature 37.2 C (98.9 F) 08/02/2025 11:09 AM EST Respiratory Rate 20 08/02/2025 11:0 9 AM EST Oxygen Saturation 98% 08/02/2025 11: 09 AM EST Inhaled Oxygen Concentration - - Weight 89.7 kg (197 lb 12.8 oz) 025 11:09 AM EST Height 162.6 cm (5' 4 ) 08/02/2025 11:0 9 AM EST Body Mass Index 33.95 08/02/2025 11:09 AM EST documented in this encounter Functional Status * Over the past 2 weeks, how often have you been bothered by any of the following problems? Question Answer Date of Assessment Author Patient Health Questionnaire-2 Score 1 01/2025 11:50 AM Josee Dawson MA * Little interest or pleasure in doing things Answer Date of Assessment Author Not at all 08/02/2025 11:50 AM Timi Dawson MA * Feeling down, depressed, or hopeless Answer Date of Assessment Author Several days 08/02/2025 11:50 AM Timi Dawson MA * Trouble falling or staying asleep, or sleeping too much Answer Date of Assessment Author More than half the days 08/02/2025 11:50 AM Josee Dawson MA * Feeling tired or having little energy Answer Date of Assessment Author More than half the days 08/02/2025 11:50 AM Josee Dawson MA * Poor appetite or overeating Answer Date of Assessment Author Not at all 08/02/2025 11:50 AM Timi Dawson MA * Feeling bad about yourself - or that you are a failure or have let yourself or your family down Answer Date of Assessment Author Not at all 08/02/2025 11:50 AM Timi Dawson MA * Trouble concentrating on things, such as reading the newspaper or watching television Answer Date of Assessment Author Not at all 08/02/2025 11:50 AM Timi Dawson MA * Moving or speaking so slowly that other people could have noticed? Or the opposite - being so fidgety or restless that you have been moving around a lot more than usual. Answer Date of Assessment Author Not at all 08/02/2025 11:50 AM Timi Dawson MA * Thoughts that you would be better off or hurting yourself in some way Answer Date of Assessment Author Not at all 08/02/2025 11:50 AM Timi Dawson MA * Patient Health Questionnaire-9 Score Answer Date of Assessment Author 5 08/02/2025 11:50 AM Timi Dawson MA * How difficult have these problems made it for you to do your work, take care of things at home, or get along with other people? Answer Date of Assessment Author Somewhat difficult 08/02/2025 11:50 AM Josee Dawson MA documented as of this encounter Patient Instructions * Patient Instructions* Natalia Spring MD - 08/02/2025 11:15 AM EST documented in this encounter Progress Notes * Natalia Spring MD - 08/02/2025 11:15 AM EST Angélica Ramachandran is a 30 y.o. 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 Menstrual Irregularity - Has not had menses in months Sexual Activity - Last sexual intercourse in June 2025. Declines family planning. Understands risk of . Smoking - Smokes one or two cigarettes per day Alcohol Use - Alcohol intake reduced, currently only a little Mental Health - Received paper for depression screening - Engaged in family therapy Social History Tobacco: approximately 1 or 2 a day Drugs: none Alcohol: Yes Sexuality: Denies current sexual activity Suicide/Depression: The patient denies any present symptoms of depression or anxiety. Review of Systems Constitutional: Negative for fatigue, fever and unexpected weight change. Respiratory: Negative for cough. Cardiovascular: Negative for chest pain. Gastrointestinal: Negative for abdominal pain. Genitourinary: Positive for menstrual problem. Negative for difficulty urinating. Current Outpatient Medications: albuterol 108 (90 Base) MCG/ACT inhaler, Inhale 2 puffs every 6 (six) hours if needed for wheezing for up to 10 days., Disp: 18 g, Rfl: 0 buPROPion (Wellbutrin) 75 MG tablet, Take 1 tablet (75 mg) by mouth every 12 (twelve) hours., Disp:90 tablet, Rfl: 3 cholecalciferol (Vitamin D-3) 25 MCG (1000 UT) capsule, Take 1 capsule (25 mcg) by mouth in the morning. Take 1 tab PO daily, Disp: 90 capsule, Rfl: 3 COVID-19 At-Home Test kit, 2 each by In Vitro route if needed (covid sx)., Disp: 2 kit, Rfl: 0 fluticasone (Flonase) 50 MCG/ACT nasal spray, Administer 1-2 sprays into each nostril in the morning. Shake gently. Before first use, prime pump. After use, clean tip and replace cap., Disp: 16 g, Rfl: 2 medroxyPROGESTERone (Provera) 10 MG tablet, Take 1 pill daily for 7 days, Disp: 30 tablet, Rfl: 0 sodium chloride ([place] Nasal [place]) 0.65 % nasal spray, 1-2 sprays on each nostril every 2-3 hours as needed for nasal congestion, Disp: 30 mL, Rfl: 1 No Known Allergies Past Medical History: Diagnosis Date Alpha trait thalassemia 07/08/201707/20: partner testing negative ([facility] [employer]); 07/15: counseled and rx given; 07/17: CBC resulted,mcv 89.8 ; hgb elect AA Deaf, bilateral 02/01/2021 Severe sensioneural hearing loss. -ASL for all visits Dyslipidemia 07/05/2024 Lab Results Component Value Date CHOL 284 (H) 07/28/2024 CHOL 278 (H) 06/15/2024 CHOL 273 (H) 09/10/2023 TRIG 251 (H) 07/28/2024 TRIG 369 (H) 06/15/2024 TRIG 421 (H) 09/10/2023 HDL 42 07/28/2024 HDL42 06/15/2024 HDL 38 (L) 09/10/2023 Dysmetabolic syndrome X 09/10/2022 Lab Results Component Value Date HGBA1C 5.7 06/15/2024 HGBA1C 5.7 09/10/2023 HGBA1C 6.0 (A) 08/14/2023 HGBA1C 5.5 04/24/2023 GLUCOSE 125 (H) 06/15/2024 Lab Results Component Value Date AST 88 (H) 07/28/2024 ALT 191 (H) 07/28/2024 ALT 92 (H) Iron deficiency anemia 09/03/2022 Lab Results Component Value Date FERRITIN 107 07/28/2024 FERRITIN 69 05/20/2023 HGB 12.5 06/15/2024 HGB 12.5 09/10/2023 HGB 12.1 07/18/2022 HEMATOCRIT 37.9 07/18/2022 Mild episode of recurrent major depressive disorder (CMS/HCC) 09/03/2022 Denies suicidial or homacidial ideation. Currently in unhealthy relationship. Denied N services. Prediabetes 09/10/2022 Lab Results Component Value Date HGBA1C 5.7 06/15/2024 HGBA1C 5.7 09/10/2023 HGBA1C 6.0 (A) 08/14/2023 HGBA1C 5.5 04/24/2023 GLUCOSE 125 (H) 06/15/2024 Psychosocial stressors 09/10/2023 Tobacco dependence syndrome 09/03/2022 Currently smoking 1-2 cigarettes a day. Transaminitis 09/10/2022 Lab Results Component Value Date TOTALBILIRUB 0.1 11/15/2024 AST 52 (H) 11/15/2024 ALT 131 (H) 11/15/2024 ALT 92 (H) 07/18/2022 ALP 123 (H) 11/15/2024 HEPCAB Nonreactive 08/17/2024 HEPAIGM Nonreactive 07/28/2024 HEPBSURFAB REACTIVE 07/28/2024 Vitamin D deficiency 09/10/2022 Lab Results Component Value Date [id number] 27.6 (L) 06/15/2024 [id number] 14.2 (L) 09/10/2023 [id number] 18.6 04/24/2023 -restart Vitamin D-3, 25 MCG, 1000 international unit 07/05/24 Past Surgical History: Procedure Laterality Date SECTION, LOW TRANSVERSE WRIST SURGERY Family History Problem Relation Name Age of Onset Diabetes Mother Diabetes Brother Objective Visit Vitals BP 120/82 (BP Location: Left arm, Patient Position: Sitting, BP Cuff Size: Adult) Pulse 87 Temp 98.9 ??F (37.2 ??C) (Oral) Resp 20 Ht 5' 4 (1.626 m) Wt 197 lb 12.8 oz (89.7 kg) SpO2 98% BMI 33.95 kg/m?? Smoking Status Every Day BSA 2.01 m?? Physical Exam Constitutional: Appearance: Normal appearance. HENT: Head: Normocephalic. Right Ear: Tympanic membrane normal. Left Ear: Tympanic membrane normal. Mouth/Throat: Pharynx: Oropharynx is clear. Eyes: Pupils: Pupils are equal, round, and reactive to light. Comments: Left eye with ron-orbital bruising Cardiovascular: Rate and Rhythm: Normal rate and regular rhythm. Heart sounds: Normal heart sounds. Pulmonary: Effort: Pulmonary effort is normal. Breath sounds: Normal breath sounds. Abdominal: General: Abdomen is flat. Palpations: There is no mass. Tenderness: There is no abdominal tenderness. Musculoskeletal: General: Normal range of motion. Cervical back: Normal range of motion and neck supple. Lymphadenopathy: Cervical: No cervical adenopathy. Skin: General: Skin is warm and dry. Neurological: General: No focal deficit present. Mental Status: She is alert. Psychiatric: Behavior: Behavior normal. 30 y.o. female annual evaluation Assessment & Plan Dysmetabolic syndrome X Lab Results Component Value Date HGBA1C 5.7 06/15/2024 HGBA1C 5.7 09/10/2023 HGBA1C 6.0 (A) 08/14/2023 HGBA1C 5.5 04/24/2023 GLUCOSE 123 (H) 11/15/2024 Lab Results Component Value Date AST 52 (H) 11/15/2024 ALT 131 (H) 11/15/2024 ALT 92 (H) 07/18/2022 ALP 123 (H) 11/15/2024 DIRECTBILIRU <0.2 11/15/2024 -continue lifestyle modification Orders: Basic Metabolic Panel; Future Iron deficiency anemia, unspecified iron deficiency anemia type Transaminitis Lab Results Component Value Date TOTALBILIRUB 0.1 11/15/2024 AST 52 (H) 11/15/2024 ALT 131 (H) 11/15/2024 ALT 92 (H) 07/18/2022 ALP 123 (H) 11/15/2024 HEPCAB Nonreactive 08/17/2024 HEPAIGM Nonreactive 07/28/2024 HEPBSURFAB REACTIVE 07/28/2024 HEPBCOREAB Nonreactive 07/28/2024 HEPBSURFACAG Negative 07/28/2024 ANASCRE NEGATIVE 07/28/2024 ANATITER TNP 07/28/2024 MITOCHAB NEGATIVE 07/28/2024 SMAB <20 07/28/2024 SMAB <1.0 NEG 05/20/2023 CERULOPLASMI 28 07/28/2024 FERRITIN 107 07/28/2024 -Continue lifestyle modification. -Avoid hepatic modifications. -s/p hep A and hep B vaccine series -hx bijan EtOH use -Abdomen US 06/02/23 IMPRESSION: Slowly echogenic liver probably representing mild fatty infiltration. Limited visualization of the pancreas. Orders: Hepatic Function Panel; Future Prediabetes Lab Results Component Value Date HGBA1C 5.7 06/15/2024 HGBA1C 5.7 09/10/2023 HGBA1C 6.0 (A) 08/14/2023 HGBA1C 5.5 04/24/2023 GLUCOSE 123 (H) 11/15/2024 Orders: Hemoglobin A1c; Future Vitamin D deficiency Lab Results Component Value Date [id number] 27.6 (L) 06/15/2024 [id number] 14.2 (L) 09/10/2023 [id number] 18.6 04/24/2023 -restart Vitamin D-3, 25 MCG, 1000 international unit 07/05/24 Orders: Vitamin D, 25-Hydroxy, Total, Immunoassay; Future Dyslipidemia Lab Results Component Value Date CHOL 284 (H) 07/28/2024 CHOL 278 (H) 06/15/2024 CHOL 273 (H) 09/10/2023 TRIG 251 (H) 07/28/2024 TRIG 369 (H) 06/15/2024 TRIG 421 (H) 09/10/2023 HDL 42 07/28/2024 HDL 42 06/15/2024 HDL 38 (L) 09/10/2023 LDLCHOLCAL 192 (H) 07/28/2024 LDLCHOLCAL 163 (H) 06/15/2024 LDLCHOLCAL TNP 09/10/2023 -continue lifestyle modification -rechecking labs in 2 weeks 07/05/24 - will likely start rx but waiting to see if LFTs improve with discontinuation of EtOH Orders: Lipid Panel, Standard; Future Routine screening for STI (sexually transmitted infection) Orders: Chlamydia/N. Gonorrhoeae, PCR, Urine POCT , urine manually resulted Deaf, bilateral Severe sensioneural hearing loss. -ASL for all visits Mild episode of recurrent major depressive disorder (CMS/HCC) Denies suicidial or homacidial ideation. Currently in unhealthy relationship. Denied N services. Tobacco dependence syndrome Currently smoking 1-2 cigarettes a day. Other specified health status Annual Evaluation -Normal growth and development. -Anticipatory guidance discussed. -Preventative care / harm reduction discussed. Dietary counseling Exercise counseling Class 1 obesity due to excess calories with serious comorbidity and body mass index (BMI) of 33.0 to 33.9 in adult Encounter for immunization Orders: FLU VACCINE TRIVALENT [id number] (Fluarix) 19 yrs + Follow up in about 3 months (around 11/02/2025) for menses on provera and labs. This note was drafted using Ambient (AI) technology. The patient/patient's guardian has been informed and has consented to the use of this technology: Yes documented in this encounter Miscellaneous Notes * Assessment & Plan Note - Natalia Spring MD - 08/02/2025 11:15 AM EST Associated Problem(s): Dysmetabolic syndrome X Lab Results Component Value Date HGBA1C 5.7 06/15/2024 HGBA1C 5.7 09/10/2023 HGBA1C 6.0 (A) 08/14/2023 HGBA1C 5.5 04/24/2023 GLUCOSE 123 (H) 11/15/2024 Lab Results Component Value Date AST 52 (H) 11/15/2024 ALT 131 (H) 11/15/2024 ALT 92 (H) 07/18/2022 ALP 123 (H) 11/15/2024 DIRECTBILIRU <0.2 11/15/2024 -continue lifestyle modification Orders: Basic Metabolic Panel; Future * Assessment & Plan Note - Natalia Spring MD - 08/02/2025 11:15 AM EST Associated Problem(s): Iron deficiency anemia * Assessment & Plan Note - Natalia Spring MD - 08/02/2025 11:15 AM EST Associated Problem(s): Transaminitis Lab Results Component Value Date TOTALBILIRUB 0.1 11/15/2024 AST 52 (H) 11/15/2024 ALT 131 (H) 11/15/2024 ALT 92 (H) 07/18/2022 ALP 123 (H) 11/15/2024 HEPCAB Nonreactive 08/17/2024 HEPAIGM Nonreactive 07/28/2024 HEPBSURFAB REACTIVE 07/28/2024 HEPBCOREAB Nonreactive 07/28/2024 HEPBSURFACAG Negative 07/28/2024 ANASCRE NEGATIVE 07/28/2024 ANATITER TNP 07/28/2024 MITOCHAB NEGATIVE 07/28/2024 SMAB <20 07/28/2024 SMAB <1.0 NEG 05/20/2023 CERULOPLASMI 28 07/28/2024 FERRITIN 107 07/28/2024 -Continue lifestyle modification. -Avoid hepatic modifications. -s/p hep A and hep B vaccine series -hx bijan EtOH use -Abdomen US 06/02/23 IMPRESSION: Slowly echogenic liver probably representing mild fatty infiltration. Limited visualization of the pancreas. Orders: Hepatic Function Panel; Future * Assessment & Plan Note - Natalia Spring MD - 08/02/2025 11:15 AM EST Associated Problem(s): Prediabetes Lab Results Component Value Date HGBA1C 5.7 06/15/2024 HGBA1C 5.7 09/10/2023 HGBA1C 6.0 (A) 08/14/2023 HGBA1C 5.5 04/24/2023 GLUCOSE 123 (H) 11/15/2024 Orders: Hemoglobin A1c; Future * Assessment & Plan Note - Natalia Spring MD - 08/02/2025 11:15 AM EST Associated Problem(s): Vitamin D deficiency Lab Results Component Value Date [id number] 27.6 (L) 06/15/2024 [id number] 14.2 (L) 09/10/2023 [id number] 18.6 04/24/2023 -restart Vitamin D-3, 25 MCG, 1000 international unit 07/05/24 Orders: Vitamin D, 25-Hydroxy, Total, Immunoassay; Future * Assessment & Plan Note - Natalia Spring MD - 08/02/2025 11:15 AM EST Associated Problem(s): Dyslipidemia Lab Results Component Value Date CHOL 284 (H) 07/28/2024 CHOL 278 (H) 06/15/2024 CHOL 273 (H) 09/10/2023 TRIG 251 (H) 07/28/2024 TRIG 369 (H) 06/15/2024 TRIG 421 (H) 09/10/2023 HDL 42 07/28/2024 HDL 42 06/15/2024 HDL 38 (L) 09/10/2023 LDLCHOLCAL 192 (H) 07/28/2024 LDLCHOLCAL 163 (H) 06/15/2024 LDLCHOLCAL TNP 09/10/2023 -continue lifestyle modification -rechecking labs in 2 weeks 07/05/24 - will likely start rx but waiting to see if LFTs improve with discontinuation of EtOH Orders: Lipid Panel, Standard; Future * Assessment & Plan Note - Natalia Spring MD - 08/02/2025 11:15 AM EST Associated Problem(s): Deaf, bilateral Severe sensioneural hearing loss. -ASL for all visits * Assessment & Plan Note - Natalia Spring MD - 08/02/2025 11:15 AM EST Associated Problem(s): Mild episode of recurrent major depressive disorder (CMS/HCC) Denies suicidial or homacidial ideation. Currently in unhealthy relationship. Denied [facility] services. * Assessment & Plan Note - Natalia Spring MD - 08/02/2025 11:15 AM EST Associated Problem(s): Tobacco dependence syndrome Currently smoking 1-2 cigarettes a day. * Assessment & Plan Note - Natalia Spring MD - 08/02/2025 11:15 AM EST Associated Problem(s): Other specified health status Annual Evaluation -Normal growth and development. -Anticipatory guidance discussed. -Preventative care / harm reduction discussed. documented in this encounter Plan of Treatment Scheduled Orders Name Type Priority Associated Diagnoses Orde r Schedule Hepatic Function Panel Lab Routine Transaminitis Expected: 07/28/2025 (Approximate), Expires: 07/28/2026 Lipid Panel, Standard Lab Routine Dyslipidemia Expected: 07/28/2025 (Approximate), Expires: 07/28/2026 Basic Metabolic Panel Lab Routine Dysmetabolic syndrome X Expected: 07/28/2025 (Approximate), Expires: 07/28/2026 Chlamydia/N. Gonorrhoeae, PCR, Urine Lab Routine Routine screening for STI (sexually transmitted infection) Ordered: 07/28/2025 Vitamin D, 25-Hydroxy, Total, Immunoassay Lab Routine Vitamin D deficiency Expected: 07/28/2025 (Approximate), Expires: 07/28/2026 documented as of this encounter Procedures Procedure Name Priority Date/Time Associated Diagnosis Comments HEMOGLOBIN A1C Routine 08/03/2025 10:26 AM EST Prediabetes POCT , URINE Routine 08/02/2025 11:59 AM EST Routine screening for STI (sexually transmitted infection) documented in this encounter Results * Hemoglobin A1c (08/03/2025 10:26 AM EST) Hemoglobin A1c 5.8 <6.0 % [facility] Comment:Hemoglobin A1C Refer ence Range Adults: 4.8 - 6.0 % Non diabetic: < 6.0 % Goal: < 7.0 %Additional Action Suggested: > 8.0 %Note: Hemoglobin A1c results are invalid for patients with abnormal amounts of HbF. Blood transfusions may impact the HbA1c concentration in the patient sample. Estimated Average Glucose 120 mg/dL [facility] Comment:eAG = Estimated ave rage glucose which is %A1C expressed asaverage glucose, using the formula of the A9I-EdmscxaVdpfgup Glucose study (ADAG), Diabetes Care, Vol.31,#8,Apr. 2007 Blood Venous blood specimen / Unknown 08/03/2025 10:26 AM EST 08/03/2025 11:16 AM EST Natalia Spring MD LAB BLOOD ORDERABLES Final Result Performing Organization Address City/State/[facility] Co de Phone Number [facility] [address] [place] [phone] * POCT , urine manually resulted (08/02/2025 11:59 AM EST) Preg Test, Ur Negative Negative, Indeterminate, None Detected, Invalid, Specimen unsatisfactory for evaluation, Weakly Positive, 2+ QC Media Lot # [id number] Lot# Expiration Date [id number] Urine 08/02/2025 11:5 9 AM EST Natalia Spring MD POINT OF CARE TEST ENTER/E DIT ORDERABLES Final Result documented in this encounter Visit Diagnoses Diagnosis Dysmetabolic syndrome X- Primary Dysmetabolic Syndrome X Iron deficiency anemia, unspecified iron deficiency anemia type Transaminitis Nonspecific elevation of levels of transaminase or lactic acid dehydrogenase (LDH) Prediabetes Other abnormal glucose Vitamin D deficiency Dyslipidemia Other and unspecified hyperlipidemia Routine screening for STI (sexually transmitted infection) Screening examination for venereal disease Deaf, 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 (CMS/HCC) Tobacco dependence syndrome Tobacco use disorder Other specified health status Dietary counseling Dietary surveillance and counseling Exercise counseling Class 1 obesity due to excess calories with serious comorbidity and body mass index (BMI) of 33.0 to 33.9 in adult Encounter for immunization documented in this encounter Additional Health Concerns Assessment Noted Time PHQ-9 Depression Total Score: 5 08/02/20 25 11:50 AM EST documented as of this encounter Care Teams Visual Developer Relationship Specialty Start Date End Date Natalia Spring MD [address] [place] [id number] PCP - General Family Medicine 06/18/22 documented as of this encounter
--- OUTSIDE RECORDS SUMMARY | 2025-08-03 11:58 | XMS_ITS | Clinical Summary ---
Author Organization [facility] Address [address] [place] [address] Care Team Providers Care Writer Editor Name Role Phone Darius Lyn PA-C Primary Care Provider Source Comments PLEASE NOTE, if this patient is a minor, it may be UNLAWFUL to discuss sensitive information that is contained in these records (such as FAMILY PLANNING, MENTAL HEALTH or SUBSTANCE ABUSE) with the minor patient's parent or other person without the patient's specific authorization.[facility] Allergies No known active allergies Medications ibuprofen 800 mg tabletIndication s:Acute pain of left wrist,Mass of joint of left wrist Take 1 Tablet by mouth 3 (three) times daily as needed for pain 30 Tablet 2 07/27/2021 Active prenat.vits,melissa, [id number] per tabletIndication s:Family planning Take 1 Tablet by mouth once daily 30 Tablet 3 02/04/2022 Active Active Problems Problem Noted Date Diagnosed Date Hx of gallstones 11/25/2021 Elevated liver enzymes 11/25/2021 Encounter for gynecological examination with Papanicolaou smear of cervix 02/20/2021 Overview (02/20/2021): PAP DONE 02/18/2021: Negative for ASCUS and Negative HPV Deaf, 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 Immunizations Immunization Administration Dates Next Due HPV 9 (Gardasil) 02/14/2022 Family History Medical History Relation Name Comments Diabetes Brother Diabetes Mother Relation Name Status Comments Brother Mother Social History Tobacco Use Types Packs/Day Years Used Date Smoking Tobacco: Former Cigarettes Smokeless Tobacco: Never Tobacco Cessation:Counseling Given: Yes Comments:2 cigarettes per day Alcohol Use Standard Drinks/Week Comments Not Currently 0 (1 standard drink = 0.6 oz pur e alcohol) occasional Social Connections Answer Date Recorded Connectedness 0 02/04/2022 Financial Resource Strain Answer Date R ecorded Financial Resource Strain 0 2021 Stress Answer Date Recorded Stress 0 02/04/2022 Physical Activity Answer Date Recorded Physical Activity 0 02/01/2021 Food Insecurity Answer Date Recorded Food 0 02/04/2022 Transportation Needs Answer Date Record ed Transportation 0 02/04/2022 Housing Stability Answer Date Recorded Housing 0 02/04/2022 Safety and Environment Answer Date Ismael rded Safety 0 02/04/2022 Utilities Answer Date Recorded Utilities 0 02/04/2022 Employment Answer Date Recorded Stress 0 02/01/2021 Comments No Sex and Gender Information Value Date Recorded Sex Assigned at Female 02/01/2021 7:05 AM PDT Legal Sex Female 11:24 AM PST Gender Identity Female 02/01/2021 7:05 AM PDT Sexual Orientation Straight 02/01/2021 7: 05 AM PDT Last Filed Vital Signs Vital Sign Reading Time Taken Comments Blood Pressure 110/72 02/14/2022 8:42 AM EDT Pulse 89 02/14/2022 8:42 AM EDT Temperature 37.2 C (98.9 F) 02/14/2022 8:42 AM EDT Respiratory Rate 16 02/14/2022 8:42 AM EDT Oxygen Saturation 99% 02/14/2022 8:42 AM EDT Inhaled Oxygen Concentration - - Weight 87.1 kg (192 lb) 02/14/2022 8:42 AM EDT Height 162.6 cm (5' 4 ) 02/14/2022 8:42 AM EDT Body Mass Index 32.96 02/14/2022 8:42 AM EDT Plan of Treatment Not on file [facility] Care Teams Writer Editor Relationship Specialty Start Date End Date Darius Lyn PA-C [address] [place] [address] PCP - General 03/07/22
--- OUTSIDE RECORDS SUMMARY | 2025-08-03 11:58 | XMS_ITS | Encounter Summary ---
Author Organization [facility] Address [address] [place] [address] 7 [place] [address] Care Team Providers Care Crematory Operator Name Role Phone Natalia Spring MD Primary Care Provider +1- [phone] Reason for Referral * Consultation (Routine) - Pending Review Specialty Diagnoses / Procedures Referred By Jaelyn argueta Referred To Contact Ophthalmology Diagnoses Vision problem Andra Leiva MD [address] [place] [phone] Phone: tel: fax: Referral ID Status Reason Start Date Expiration Date Visits Requested Visits Authorized [id number] Pending Review Specialty Services Required 11/15/2024 11/15/2025 1 1 Encounter Details Date Type Department Care Team ([facility] st Contact Info) Description 11/15/2024 Orders Only [facility] MED[facility]INE [address] [place] [phone] Andra Leiva MD [address] [place], [place] [phone] Vision problem (Primary Dx) Social History Tobacco Use Types Packs/Day Years Used Date Smoking Tobacco: Every Day Cigarettes Smokeless Tobacco: Never Depression Answer Date Recorded Patient Health Questionnaire-9 Score 2 07/04/2024 Patient Health Questionnaire-9 Score 2 07/04/2024 Last PHQ-9: Questionnaire Data Not on file 1 Housing Stability Answer Date Recorded What is your housing situation today? I have casi hale 07/04/[address] you li ve. Do you have problems with any of the following? None of the above 07/04/2024 Food Insecurity Answer Date Recorded Within the past 12 months, y ou worried that your food would run out before you got money to buy more: Never True 07/04/2024 Within the past 12 months,th e food you bought just didn't last and you didn't have enough money to get more: Never True 03/2024 Transportation Answer Date Recorded In the past 12 months, has l ack of transportation kept you from medical appts, meetings, work or from getting things needed for daily living? No 07/04/2024 Utilities Answer Date Recorded In the past 12 months, has t he electric, gas, oil or water company threatened to shut off services in your home? No 07/04/2024 Depression Answer Date Recorded Patient Health Questionnaire-2 Score 0 07/04/2024 Internet Access Answer Date Recorded Internet Access Q1 Yes 07/04/2024 Internet Access Q2 Not on file 07/04/2024 Comments Unknown Sex and Gender Information Value Date Recorded Sex Assigned at Female 07/28/2022 10:40 AM EDT Legal Sex Female 10:40 AM EDT Gender Identity Female 07/28/2022 10:40 AM EDT Sexual Orientation Choose not to disclose 2021 10:40 AM EDT documented as of this encounter Plan of Treatment Scheduled Referrals Name Type Priority Associated Diagnoses Order Schedule Referral to Ophthalmology Outpatient Referral Routine Vision problem Expected: 11/15/2024 (Approximate), Expires: 11/15/2025 documented as of this encounter Procedures Procedure Name Priority Date/Time Associated Diagnosis Comments HIGH SENSITIVITY TROPONIN I Routine 11/15/2024 9:34 PM EST Vision problem SARS COV2/INFLUENZA A/B AND RSV RNA QL NAAT Routine 11/15/2024 9:34 PM EST Vision problem CBC WITH AUTO DIFFERENTIAL Routine 11/15/2024 9:34 PM EST Vision problem MAGNESIUM Routine 11/15/2024 9:34 PM EST Vision problem HEPATIC FUNCTION PANEL Routine 11/15/2024 9:34 PM EST Vision problem BASIC METABOLIC PANEL Routine 11/15/2024 9:34 PM EST Vision problem HCG, QL, URINE Routine 11/15/2024 9:33 PM EST Vision problem URINALYSIS WITH REFLEX MICROSCOPIC Routine 11/15/2024 9:33 PM EST Vision problem documented in this encounter Results * SARS-CoV-2 RNA, Influenza A/B, and RSV RNA, Ql NAAT (11/15/2024 9:34 PM EST) Influenza A PCR NEGATIVE Negative [facility] Influenza B PCR NEGATIVE Negative [facility] Resp Syncy Virus RNA Qual PCR NEGATIVE Negative [facility] SARS COV2 PCR NEGATIVE Negative [facility] Comment:All test results mus t be correlated with clinical findings.Negative results do not preclude SARS-CoV2, influenza Avirus, influenza B virus and/or RSV infectionand should not be used as the sole basis for treatment orother patient management decisions. Negative results must becombined with clinical observations, patient history, andepidemiological information.This test has not been evaluated for monitoring treatment ofinfection.This test has been authorized by the FDA under an EmergencyUse Authorization (EUA) for use by authorized laboratories.Testing performed on the bVisual GeneXpert utilizingreal-time RT-PCR.All SARS CoV2 and positive influenza A/B results arereported to [facility]. 11/15/2024 9:34 PM EST 11/15/2024 9:38 PM EST us Generic External Data Provider LAB MICROBIOLOGY - GENERAL ORDERABLES Final Result [facility] [address] [place] [phone] * High Sensitivity Troponin I (11/15/2024 9:34 PM EST) TROPONIN I HIGH SENSITIVITY <2.7 <3.5 - 17.0 ng/L [facility] Comment:The Hess high sens itivity Troponin-I results should beused in conjunction with other diagnostic information suchas ECG, clinical observations and information, and patientsymptoms to aid in the diagnosis of [facility]. 11/15/2024 9:34 PM EST 11/15/2024 9:38 PM EST Generic External Data Provider LAB BLOOD ORDERAB LES Final Result Performing Organization Address [facility]/ZIP Co de Phone Number [facility] [address] [place] [phone] * Magnesium (11/15/2024 9:34 PM EST) Pathologist [facility] Magnesium 1.8 1.6 - 2.6 mg/dL [facility] 11/15/2024 9:34 PM EST 11/15/2024 9:38 PM EST Generic External Data Provider LAB BLOOD ORDERAB LES Final Result Performing Organization Address [facility] Co de Phone Number [facility] [address] [place] [phone] * (ABNORMAL) Basic Metabolic Panel (11/15/2024 9:34 PM EST) Pathologist [facility] Sodium 139 135 - 145 mmol/L [facility] Potassium 4.0 3.3 - 5.1 mmol/L [facility] Chloride 108 96 - 108 mmol/L [facility] Carbon Dioxide 21(L) 22 - 29 mmol/L [facility] Anion Gap 14 12 - 20 [facility] Urea Nitrogen (BUN) 17(H) 9 - 16 mg/dL [facility] Creatinine, Serum 0.76 0.5 - 1.4 mg/dL [facility] Creatinine Clr Calc Pharmacy 120.8 [facility] Comment:Provided height and weight: 167.64 cm,86.183 kg.eGFR (calculated from the MDRD study equation) and eCrCl(calculated from the Cockcroft-Gault equation) are based ondifferent parameters and may not yield comparable results.If eCrCl result is absurd, please check patient'sheight/weight. Estimated Glomerular Filt Rate >60 [facility] Comment:Chronic Kidney Disea se: Estimated GFR < 60 mL/min/1.01f8Kbxjqv Kidney Disease: Estimated GFR < 15 mL/min/1.73m2 Glucose 123(H) 60 - 115 mg/dL [facility] Calcium 9.4 8.4 - 10.2 mg/dL [facility] 11/15/2024 9:34 PM EST 11/15/2024 9:38 PM EST us Generic External Data Provider LAB BLOOD ORDERAB LES Final Result Performing Organization Address [facility] Co de Phone Number [facility] [address] [place] [phone] * (ABNORMAL) Hepatic Function Panel (11/15/2024 9:34 PM EST) Bilirubin, Total 0.1 0.0 - 1.0 mg/dL [facility] Bilirubin, Direct <0.2 0.0 - 0.5 mg/dL [facility] Aspartate Amino Transferase 52(H) 5 - 31 U/L [facility] Alanine Aminotransferase 131(H) 0 - 31 U/L [facility] Total Protein 8.1(H) 6.5 - 8.0 g/dL [facility] Albumin Level 4.4 3.5 - 5.0 g/dL [facility] Alkaline Phosphatase 123(H) 39 - 117 U/L [facility] 11/15/2024 9:34 PM EST 11/15/2024 9:38 PM EST us Generic External Data Provider LAB BLOOD ORDERAB LES Final Result Performing Organization Address [facility] Co de Phone Number [facility] [address] [place] [phone] * (ABNORMAL) CBC auto differential (11/15/2024 9:34 PM EST) White Blood Count 7.8 4.8 - 10.8 X10*3/uL [facility] Red Blood Count 5.06 4.20 - 5.50 X10*6/uL [facility] Hemoglobin 12.8 12.0 - 16.0 g/dl [facility] Hematocrit 39.4 37.0 - 47.0 % [facility] Mean Corpuscular Volume 77.9(L) 80.0 - 98.0 fL [facility] Mean Corpuscular Hemoglobin 25.3(L) 27.0 - 33.0 pg [facility] Mean Corpuscular HGB Conc 32.5 31.0 - 35.0 g/dl [facility] Red Cell Distribution Width 12.5 11.0 - 16.0 % [facility] Platelet Count 380 160 - 400 X10*3/uL [facility] Mean Platelet Volume 9.4 9.4 - 12.3 fL [facility] Neutrophils Percent Auto 49.4 45 - 73 % [facility] Imm Gran Pct Auto 0.3 0.0 - 0.4 % [facility] Lymphocytes Percent Auto 41.7(H) 20 - 40 % [facility] Monocytes Percent Auto 5.8 2 - 11 % [facility] Eosinophils Percent Auto 2.4 0 - 4 % [facility] Basophils Percent Auto 0.4 0 - 2 % [facility] NRBC Pct Auto 0.0 0.0 - 0.2 /100WBC [facility] Neutrophils Absolute Auto 3.9 2.0 - 8.3 x10*3/uL [facility] Imm Gran Abs Auto 0.02 0.00 - 0.03 X10*3/uL [facility] Lymphocytes Absolute Auto 3.3 1.2 - 4.9 X10*3/uL [facility] Monocytes Absolute Auto 0.5 0.1 - 1.2 X10*3/uL [facility] Eosinophils Absolute Auto 0.2 0.0 - 0.4 X10*3/uL [facility] Basophils Absolute Auto 0.0 0.0 - 0.2 X10*3/uL [facility] NRBC Abs Auto 0.000 0.0 - 0.012 X10*3/uL [facility] 11/15/2024 9:34 PM EST 11/15/2024 9:38 PM EST Generic External Data Provider LAB BLOOD ORDERAB LES Final Result Performing Organization Address [facility] Co de Phone Number [facility] [address] [place] [phone] * HCG, Qualitative, Urine (11/15/2024 9:33 PM EST) Urine NEGATIVE NEGATIVE [facility] Comment:This test was develo ped to detect early . Falsenegative results may occur after the 5th - 7th week ofpregnancy when using this test method. If clinicallyindicated, consider a serum hCG. 11/15/2024 9:33 PM EST 11/15/2024 9:52 PM EST Generic External Data Provider LAB URINE ORDERAB LES Final Result Performing Organization Address [facility] Co de Phone Number [facility] [address] [place] [phone] * (ABNORMAL) Urinalysis w/reflex microscopic (11/15/2024 9:33 PM EST) Color Urine Yellow [facility] Appearance Urine Cloudy [facility] PH 6.0 5.0 - 9.0 [facility] Glucose Urine UA Negative Negative mg/dL [facility] Urine Blood Negative Negative [facility] Specific Grassflat - Urine >=1.030(H) 1.005 - 1.025 [facility] Urine Protein Negative Neg-Trace mg/dL [facility] Urine Ketones Trace Negative mg/dL [facility] Nitrite Urine Negative Negative [facility] Leukocyte Esterase Urine Negative Negative [facility] 11/15/2024 9:33 PM EST 11/15/2024 9:52 PM EST Narrative [facility] - 11/15/2024 9:57 PM EST Urine, Clean Catch us Generic External Data Provider LAB URINE ORDERAB LES Final Result Performing Organization Address City/State/[facility] Co de Phone Number [facility] [address] [place] [phone] documented in this encounter Visit Diagnoses Diagnosis Vision problem- Primary Problems with sight documented in this encounter Additional Health Concerns Assessment Noted Time PHQ-9 Depression Total Score: 2 07/04/20 24 1:39 PM EDT documented as of this encounter Care Teams Crematory Operator Relationship Specialty Start Date End Date Natalia Spring MD [address] [place] [address] PCP - General Family Medicine 06/18/22 documented as of this encounter
--- OUTSIDE RECORDS SUMMARY | 2025-08-03 11:58 | XMS_ITS | Encounter Summary ---
Author Organization [facility] Address [address] [facility] 7[address] [place] [address] Care Team Providers Care Reading Instructor Name Role Phone Natalia Spring MD Primary Care Provider +1- [phone] Encounter Details Date Type Department Care Team (Latest Contact Info) Description 08/02/2025 Travel Social History Tobacco Use Types Packs/Day Years [...] Q2 Not on file 08/02/2025 Comments Unknown Sex and Gender Information Value Date Recorded Sex Assigned at Female 07/28/2022 10:40 AM EDT Legal Sex Female 10:40 AM EDT Gender Identity Female 07/28/2022 10:40 AM EDT Sexual Orientation Choose not to disclose 2021 10:40 AM EDT documented as of this encounter Functional Status * Over the [...] [place] documented as of this encounter Plan of Treatment Not on file documented as of this encounter Visit Diagnoses Not on filedocumented in this encounter Additional Health Concerns Assessment Noted Time PHQ-9 Depression Total Score: 5 08/02/20 11:50 AM EST documented as of this encounter Care Teams Reading Instructor Relationship Specialty Start Date End Date Natalia Spring MD [address] [place] [address] PCP - General Family Medicine 06/18/22 documented as of this encounter
--- OUTSIDE RECORDS SUMMARY | 2025-08-03 11:58 | XMS_ITS | Encounter Summary ---
Author Organization [facility] Address [address] [facility] [address]t [place] [address] Care Team Providers Care Sole Cementer Name Role Phone Natalia Spring MD Primary Care Provider +1- [phone] Encounter Details Date Type Department Care Team ([facility] st Contact Info) Description 07/15/2023 Abstract [facility] MEDICINE [address] [place], [place] [phone] Natalia Spring MD [address] [place], [place] [phone] Social History Tobacco Use Types Packs/Day Years Used Date Smoking Tobacco: Never Smokeless Tobacco: Never Depression Answer Date Recorded Patient Health Questionnaire-9 Score 0 04/24/2023 Housing Stability Answer Date Recorded What is your housing situation today? I have casibarbara hale 07/15/[address] you li ve. Do you have problems with any of the following? None of the above 07/15/2023 Food Insecurity Answer Date Recorded Within the past 12 months, y ou worried that your food would run out before you got money to buy more: Never True 07/15/2023 Within the past 12 months,th e food you bought just didn't last and you didn't have enough money to get more: Never True Transportation Answer Date Recorded In the past 12 months, has l ack of transportation kept you from medical appts, meetings, work or from getting things needed for daily living? No 07/15/2023 Utilities Answer Date Recorded In the past 12 months, has t he electric, gas, oil or water company threatened to shut off services in your home? No 07/15/2023 Depression Answer Date Recorded Patient Health Questionnaire-2 Score 0 04/24/2023 Comments Unknown Sex and Gender Information Value [...] Assessment Noted Time PHQ-9 Depression Total Score: 0 04/24/20 23 11:03 AM EDT documented as of this encounter Care Teams Sole Cementer Relationship Specialty Start Date End Date Natalia Spring MD [address] [place] [phone] PCP - General Family Medicine 06/18/22 documented as of this encounter
--- OUTSIDE RECORDS SUMMARY | 2025-08-03 11:58 | XMS_ITS | Encounter Summary ---
Author Organization [facility] Address [address] [facility] 7t [place] [address] Care Team Providers Care Software Development Project Manager Name Role Phone Natalia Spring MD Primary Care Provider +1- [phone] Encounter Details Date Type Department Care Team ([facility] st Contact Info) Description 08/18/2024 Orders Only [facility] MED[facility]INE [address] [place], [place] [phone] Natalia Spring MD [address] [place], [place] [phone] Transaminitis (Primary Dx) Social History Tobacco Use Types [...] of this encounter Plan of Treatment Scheduled Orders Name Type Priority Associated Diagnoses Orde r Schedule Alpha-Fetoprotein, Tumor Marker Lab Routine Transaminitis Expected: 08/18/2024 (Approximate), Expires: 08/18/2025 Hepatitis Panel, General Lab Routine Transaminitis Expected: 08/18/2024, Expires: 08/18/2025 Ferritin Lab Routine Transaminitis Expected: 08/18/2024, Expires: 08/18/2025 Iron And Total Iron Binding Capacity Lab Routine Transaminitis Expected: 08/18/2024, Expires: 08/18/2025 Ceruloplasmin Lab Routine Transaminitis Expected: 08/18/2024 (Approximate), Expires: 08/18/2025 LATOSHA Screen,IFA, with Reflex to Titer and Pattern Lab Routine Transaminitis Expected: 08/18/2024 (Approximate), Expires: 08/18/2025 Mitochondrial Antibody with Reflex to Titer Lab Routine Transaminitis Expected: 08/18/2024 (Approximate), Expires: 08/18/2025 Actin (Smooth Muscle) Antibody (IgG) Lab Routine Transaminitis Expected: 08/18/2024 (Approximate), Expires: 08/18/2025 Hepatic Function Panel Lab Routine Transaminitis Expected: 08/18/2024 (Approximate), Expires: 08/18/2025 documented as of this encounter Visit Diagnoses Diagnosis Transaminitis- Primary Nonspecific elevation of levels of transaminase or lactic acid dehydrogenase (LDH) documented in this encounter Additional Health Concerns Assessment Noted Time PHQ-9 Depression Total Score: 2 07/04/20 24 1:39 PM EDT documented as of this encounter Care Teams Software Development Project Manager Relationship Specialty Start Date End Date Natalia Spring MD [address] [place] [address] PCP - General Family Medicine 06/18/22 documented as of this encounter
--- OUTSIDE RECORDS SUMMARY | 2025-08-03 11:58 | XMS_ITS | Encounter Summary ---
Author Organization [facility] Address [address] [place] [address] 7[address] [place] [address] Care Team Providers Care Cone Picker Name Role Phone Natalia Spring MD Primary Care Provider +1- [phone] Encounter Details Date Type Department Care Team (Late st Contact Info) Description 12/31/2022 Orders Only [facility] [address] [place], [place] [phone] Natalia Spring MD [address] [place], [place] [phone] Deaf, bilateral (Primary Dx) Social History Tobacco Use Types Packs/Day Years Used Date Smoking Tobacco: Never Assessed Comments Unknown Sex and Gender Information Value Date Recorded Sex Assigned at Female 07/28/2022 10:40 AM EDT Legal Sex Female 10:40 AM EDT Gender Identity Female 07/28/2022 10:40 AM EDT Sexual Orientation Choose not to disclose 2021 10:40 AM EDT COVID-19 Exposure Response Date Recorded In the last 10 days, have yo u been in contact with someone who was confirmed or suspected to have Coronavirus/COVID-19? No / Unsure 12/16/2022 5:55 PM EDT documented as of this encounter Plan of Treatment Not on file documented as of this encounter Visit Diagnoses Diagnosis Deaf, bilateral- Primary documented in this encounter Care Teams Cone Picker Relationship Specialty Start Date End Date Natalia Spring MD [address] [place] [phone] PCP - General Family Medicine 06/18/22 documented as of this encounter
--- OUTSIDE RECORDS SUMMARY | 2025-08-03 11:58 | XMS_ITS | Clinical Summary ---
Author Organization [employer] Address [address] [place] [address] Care Team Providers Care Visual Merchandising Associate Name Role Phone Natalia Spring MD Primary Care Provider [phone] Allergies No known active allergies Medications buPROPion (Wellbutrin) 75 MG tabletIndication s:Moderate major depression, single episode (CMS/HCC) (HCC) Take 1 tablet (75 mg) by mouth every 12 (twelve) hours. 90 tablet 3 2 Active cholecalciferol (Vitamin D-3) 25 MCG (1000 UT) capsuleIndicatio ns:Vitamin D deficiency Take 1 capsule (25 mcg) by mouth in the morning. Take 1 tab PO daily 90 capsule 3 2 Active sodium chloride ([place] Nasal [place]) 0.65 % nasal sprayIndications :Viral syndrome,Exposur e to influenza 1-2 sprays on each nostril every 2-3 hours as needed for nasal congestion 30 mL 1 3 Active COVID-19 At-Home Test kitIndications:C OVID-19 2 each by In Vitro route if needed (covid sx). 2 kit 3 Active albuterol 108 (90 Base) MCG/ACT inhalerIndicatio ns:Viral upper respiratory infection Inhale 2 puffs every 6 (six) hours if needed for wheezing for up to 10 days. 18 g 4 Active fluticasone (Flonase) 50 MCG/ACT nasal sprayIndications :Viral upper respiratory infection Administer 1-2 sprays into each nostril in the morning. Shake gently. Before first use, prime pump. After use, clean tip and replace cap. 16 g 2 4 Active medroxyPROGESTER one (Provera) 10 MG tablet Take 1 pill daily for 7 days 30 tablet 5 Active cholecalciferol (Vitamin D-3) 25 MCG (1000 UT) tabletIndication s:Vitamin D Deficiency Take 1 tablet (25 mcg) by mouth Once per day. 90 tablet 3 4 07/05/20 25 Active Problems Problem Noted Date Diagnosed Date Abdominal pain 11/16/2024 Overview (11/16/2024): Seen in ER 11/16/24 for abdominal pain with rectal bleeding. -CT IMPRESSION: No findings within the confines of a noncontrast exam to explain the patient's rectal bleeding. The bowel appears nondilated and noninflamed. Amenorrhea 08/17/2024 Overview (08/22/2024): Last period some time in June. HCG, quant <2 on 07/28/24. Not currently on control. - Declined birthcontrol 08/17/24 - Urine HCG Negative 08/17/24 - Ordered TSH W/Reflex to FT4 08/17/24 - testosterone elevated 08/22/24 Assessment & Plan (08/17/2024 3:05 PM EST): Last period some time in June. HCG, quant <2 on 07/28/24. Not currently on control. - Declined birthcontrol 08/17/24 - Urine HCG Negative 08/17/24 - Ordered TSH W/Reflex to FT4 08/17/24 - Ordered Testosterone, Total, males (Adult), IA 08/17/24 Dyslipidemia 07/05/2024 Overview (03/09/2025): Lab Results Component Value Date CHOL 284 [...] if LFTs improve with discontinuation of EtOH Assessment & Plan (08/02/2025 12:16 PM EST): Lab Results Component Value Date CHOL 284 [...] of EtOH Orders: Lipid Panel, Standard; Future Assessment & Plan (08/17/2024 2:52 PM EST): Lab Results Component Value Date CHOL 284 [...] if LFTs improve with discontinuation of EtOH Assessment & Plan (07/05/2024 10:06 AM EDT): Lab Results Component Value Date CHOL 278 (H) 06/15/2024 CHOL 273 (H) 09/10/2023 CHOL 283 04/24/2023 TRIG 369 (H) 06/15/2024 TRIG 421 (H) 09/10/2023 TRIG 284 04/24/2023 HDL 42 06/15/2024 HDL 38 (L) 09/10/2023 HDL 34 04/24/2023 LDLCHOLCAL 163 (H) 06/15/2024 LDLCHOLCAL TNP 09/10/2023 LDLCHOLCAL 193 04/24/2023 -continue lifestyle modification -rechecking labs in 2 weeks 07/05/24 - will likely start rx but waiting to see if LFTs improve with discontinuation of EtOH History of loss 06/28/2024 Overview (08/17/2024): SAB at 24 weeks in 2015 Psychosocial stressors 09/10/2023 Assessment & Plan (09/10/2023 10:40 AM EST): Continue with therapist through [facility] on . No interested in medication at this time. Denies MARQUITA or current DV. Other specified health status 04/13/2023 Overview (08/17/2024): -next physical exam due after 08/17/2025 -eye care facilitated by [facility], eye appt. Nov 03 2024. -dental home is [facility] -health care proxy given and filed 07/05/24 Assessment & Plan (08/02/2025 12:16 PM EST): Annual Evaluation -Normal growth and development. -Anticipatory guidance discussed. -Preventative care / harm reduction discussed. Assessment & Plan (08/17/2024 2:52 PM EST): -next physical exam due after 08/17/2025 -eye care facilitated by [facility], eye appt. Nov 03 2024. -dental home is [facility] -health care proxy given and filed 07/05/24 Assessment & Plan (07/05/2024 9:44 AM EDT): -next physical exam due after 08/14/2024 -eye care facilitated by [facility], eye appt. Nov 03 2024. -dental home is [facility] -health care proxy given and filed 07/05/24 Assessment & Plan (08/14/2023 10:17 AM EST): -next physical exam due after 08/14/2024 -eye care facilitated by -dental home is [facility] 09/10/2022 Overview (08/01/2025): Lab Results Component Value Date TOTALBILIRUB 0.1 [...] fatty infiltration. Limited visualization of the pancreas. Assessment & Plan (08/02/2025 12:16 PM EST): Lab Results Component Value Date TOTALBILIRUB 0.1 [...] the pancreas. Orders: Hepatic Function Panel; Future Assessment & Plan (08/17/2024 2:49 PM EST): Lab Results Component Value Date AST 88 (H) 07/28/2024 ALT 191 (H) 07/28/2024 ALT 92 (H) 07/18/2022 ALP 127 (H) 07/28/2024 DIRECTBILIRU 0.1 07/28/2024 Differential includes metabolic dysfunction-associated steatotic liver disease vs alcohol induced. -Continue lifestyle modification. -Avoid hepatic modifications. -Discussed stopping alcohol use and will repeat labs in 2 weeks. - Ordered repeat labs 08/17/24 Abdomen US 06/02/23 IMPRESSION: Slowly echogenic liver probably representing mild fatty infiltration. Limited visualization of the pancreas. Assessment & Plan (07/05/2024 10:04 AM EDT): Lab Results Component Value Date AST 57 (H) 06/15/2024 ALT 134 (H) 06/15/2024 ALT 92 (H) 07/18/2022 ALP 113 06/15/2024 DIRECTBILIRU <0.2 06/15/2024 Differential includes metabolic dysfunction-associated steatotic liver disease vs alcohol induced. -Continue lifestyle modification. -Avoid hepatic modifications. -Discussed stopping alcohol use and will repeat labs in 2 weeks. Abdomen US 06/02/23 IMPRESSION: Slowly echogenic liver probably representing mild fatty infiltration. Limited visualization of the pancreas. Assessment & Plan (08/14/2023 10:15 AM EST): Ordered US and labs. Continue lifestyle modification. Avoid hepatic modifications. Assessment & Plan (05/20/2023 12:02 PM EDT): Ordered US and labs. Continue lifestyle modification. Avoid hepatic modifications. Prediabetes 09/10/2022 Overview (08/01/2025): Lab Results Component Value Date HGBA1C 5.7 06/15/2024 HGBA1C 5.7 09/10/2023 HGBA1C 6.0 (A) 08/14/2023 HGBA1C 5.5 04/24/2023 GLUCOSE 123 (H) 11/15/2024 Assessment & Plan (08/02/2025 12:16 PM EST): Lab Results Component Value Date HGBA1C 5.7 06/15/2024 HGBA1C 5.7 09/10/2023 HGBA1C 6.0 (A) 08/14/2023 HGBA1C 5.5 04/24/2023 GLUCOSE 123 (H) 11/15/2024 Orders: Hemoglobin A1c; Future Assessment & Plan (08/17/2024 2:47 PM EST): Lab Results Component Value Date HGBA1C 5.7 06/15/2024 HGBA1C 5.7 09/10/2023 HGBA1C 6.0 (A) 08/14/2023 HGBA1C 5.5 04/24/2023 GLUCOSE 125 (H) 06/15/2024 Assessment & Plan (08/14/2023 10:16 AM EST): Lab Results Component Value Date HGBA1C 5.5 04/24/2023 HGBA1C 5.8 (H) 07/18/2022 Assessment & Plan (05/20/2023 12:02 PM EDT): Lab Results Component Value Date HGBA1C 5.5 04/24/2023 HGBA1C 5.8 (H) 07/18/2022 Assessment & Plan (04/24/2023 11:14 AM EDT): Lab Results Component Value Date HGBA1C 5.8 (H) 07/18/2022 Vitamin D deficiency 09/10/2022 Overview (08/01/2025): Lab Results Component Value Date [id number] 27.6 (L) 06/15/2024 [id number] 14.2 (L) 09/10/2023 [id number] 18.6 04/24/2023 -restart Vitamin D-3, 25 MCG, 1000 international unit 07/05/24 Assessment & Plan (08/02/2025 12:16 PM EST): Lab Results Component Value Date [id number] 27.6 (L) 06/15/2024 [id number] 14.2 (L) 09/10/2023 [id number] 18.6 04/24/2023 -restart Vitamin D-3, 25 MCG, 1000 international unit 07/05/24 Orders: Vitamin D, 25-Hydroxy, Total, Immunoassay; Future Assessment & Plan (08/17/2024 2:47 PM EST): Lab Results Component Value Date [id number] 27.6 (L) 06/15/2024 [id number] 14.2 (L) 09/10/2023 [id number] 18.6 04/24/2023 -restart Vitamin D-3, 25 MCG, 1000 international unit 07/05/24 Assessment & Plan (07/05/2024 10:05 AM EDT): Lab Results Component Value Date [id number] 27.6 (L) 06/15/2024 [id number] 14.2 (L) 09/10/2023 ALRY70WANTV 18.6 04/24/2023 -restart Vitamin D-3, 25 MCG, 1000 international unit 07/05/24 Assessment & Plan (04/24/2023 11:14 AM EDT): No results found for: [id number] Dysmetabolic syndrome X 09/10/2022 Overview (08/01/2025): Lab Results Component Value Date HGBA1C 5.7 06/15/2024 HGBA1C 5.7 09/10/2023 HGBA1C 6.0 (A) 08/14/2023 HGBA1C 5.5 04/24/2023 GLUCOSE 123 (H) 11/15/2024 Lab Results Component Value Date AST 52 (H) 11/15/2024 ALT 131 (H) 11/15/2024 ALT 92 (H) 07/18/2022 ALP 123 (H) 11/15/2024 DIRECTBILIRU <0.2 11/15/2024 -continue lifestyle modification Assessment & Plan (08/02/2025 12:16 PM EST): Lab Results Component Value Date HGBA1C 5.7 06/15/2024 HGBA1C 5.7 09/10/2023 HGBA1C 6.0 (A) 08/14/2023 HGBA1C 5.5 04/24/2023 GLUCOSE 123 (H) 11/15/2024 Lab Results Component Value Date AST 52 (H) 11/15/2024 ALT 131 (H) 11/15/2024 ALT 92 (H) 07/18/2022 ALP 123 (H) 11/15/2024 DIRECTBILIRU <0.2 11/15/2024 -continue lifestyle modification Orders: Basic Metabolic Panel; Future Assessment & Plan (08/17/2024 2:53 PM EST): Lab Results Component Value Date HGBA1C 5.7 06/15/2024 HGBA1C 5.7 09/10/2023 HGBA1C 6.0 (A) 08/14/2023 HGBA1C 5.5 04/24/2023 GLUCOSE 125 (H) 06/15/2024 Lab Results Component Value Date AST 88 (H) 07/28/2024 ALT 191 (H) 07/28/2024 ALT 92 (H) 07/18/2022 ALP 127 (H) 07/28/2024 DIRECTBILIRU 0.1 07/28/2024 Assessment & Plan (08/14/2023 10:16 AM EST): Labs 07/2022 revealed A1c 5.8, trasnaminitis, elevated cholesterol. Lifestyle modification discussed and will recheck in 6 months. -A1c went from 5.8 to 5.5 with lifestyle changes. Assessment & Plan (05/20/2023 12:02 PM EDT): Labs 07/2022 revealed A1c 5.8, trasnaminitis, elevated cholesterol. Lifestyle modification discussed and will recheck in 6 months. -A1c went from 5.8 to 5.5 with lifestyle changes. Assessment & Plan (04/24/2023 11:12 AM EDT): Labs 07/2022 revealed A1c 5.8, trasnaminitis, elevated cholesterol. Lifestyle modification discussed and will recheck in 6 months. Assessment & Plan (09/10/2022 2:37 PM EST): Labs 07/2022 revealed A1c 5.8, trasnaminitis, elevated cholesterol. Lifestyle modification discussed and will recheck in 6 months. Iron deficiency anemia 09/03/2022 Overview (08/16/2024): Lab Results Component Value Date FERRITIN 107 07/28/2024 FERRITIN 69 05/20/2023 HGB 12.5 06/15/2024 HGB 12.5 09/10/2023 HGB 12.1 07/18/2022 HEMATOCRIT 37.9 07/18/2022 Assessment & Plan (08/02/2025 12:16 PM EST): Assessment & Plan (08/17/2024 2:48 PM EST): Lab Results Component Value Date FERRITIN 107 07/28/2024 FERRITIN 69 05/20/2023 HGB 12.5 06/15/2024 HGB 12.5 09/10/2023 HGB 12.1 07/18/2022 HEMATOCRIT 37.9 07/18/2022 Assessment & Plan (08/14/2023 10:15 AM EST): Lab Results Component Value Date FERRITIN 69 05/20/2023 HGB 12.1 07/18/2022 HEMATOCRIT 37.9 07/18/2022 Assessment & Plan (04/24/2023 11:13 AM EDT): Lab Results Component Value Date HGB 12.1 07/18/2022 HEMATOCRIT 37.9 07/18/2022 Mild episode of recurrent major depressive disor angel 09/03/2022 Overview (07/05/2024): Denies suicidial or homacidial ideation. Currently in unhealthy relationship. Denied BHN services. Assessment & Plan (08/02/2025 12:16 PM EST): Denies suicidial or homacidial ideation. Currently in unhealthy relationship. Denied BHN services. Assessment & Plan (07/05/2024 9:54 AM EDT): Denies suicidial or homacidial ideation. Currently in unhealthy relationship. Denied BHN services. Tobacco dependence syndrome 09/03/2022 Overview (08/17/2024): Currently smoking 1-2 cigarettes a day. Assessment & Plan (08/02/2025 12:16 PM EST): Currently smoking 1-2 cigarettes a day. Assessment & Plan (08/17/2024 2:54 PM EST): Currently smoking 1-2 cigarettes a day. Deaf, bilateral 02/01/2021 Overview (04/13/2023): Severe sensioneural hearing loss. -ASL for all visits Assessment & Plan (08/02/2025 12:16 PM EST): Severe sensioneural hearing loss. -ASL for all visits Assessment & Plan (08/17/2024 2:54 PM EST): Severe sensioneural hearing loss. -ASL for all visits Assessment & Plan (07/05/2024 9:53 AM EDT): Severe sensioneural hearing loss. -ASL for all visits Assessment & Plan (08/14/2023 10:16 AM EST): Severe sensioneural hearing loss. -ASL for all visits Assessment & Plan (04/24/2023 11:08 AM EDT): Severe sensioneural hearing loss. -ASL for all visits Alpha trait thalassemia 07/08/2017 Overview (08/16/2024): 07/20: partner testing negative ([facility]); 07/15: counseled and rx given; 07/17: CBC resulted, mcv 89.8 ; hgb elect AA Resolved Problems Problem Noted Date Diagnosed Date Resolved Date Possible exposure to STI 07/27/2024 Overview (07/27/2024): Ordered STI testing 07/27/24 Assessment & Plan (07/27/2024 11:29 AM EDT): Ordered STI testing 07/27/24 Shortness of breath 09/10/2023 07/28/20 25 Assessment & Plan (09/10/2023 10:39 AM EST): Likely due to psychosocial stressors. Check labs. No inprovment with albuterol. Normal cardiopulmonary exam. Encounter for Papanicolaou smear of cervix 08/14/2023 09/10/2023 Physical exam 07/30/2023 09/10/2023 Overview (07/30/2023): -Normal growth and development. -Anticipatory guidance discussed. -Preventative care / harm reduction discussed. Assessment & Plan (08/14/2023 10:17 AM EST): -Normal growth and development. -Anticipatory guidance discussed. -Preventative care / harm reduction discussed Bilateral deafness 09/03/2022 2 Elevated liver enzymes 11/25/202104/13 Obesity with body mass index 30 or greater 06/17/2017 07/28/2025 Overview (08/16/2024): 1st visit at 25 wks, 1 hr glucola ordered and wnl; diet reviewed recommend 1- 2#/month wt gain. Encounters Date Type Department Care Team Description 08/02/2025 11:15 AM EST Office Visit [facility] [address] [place] [phone] Natalia Spring MD Dysmetabolic syndrome X (Primary Dx); Iron deficiency [...] to 33.9 in adult; Encounter for immunization 08/02/2025 Travel 07/28/2025 Telephone [facility] [address] [place] [phone] Natalia Spring MD Lab Orders 07/28/2025 Telephone [facility] [address] [place] [phone] Natalia Spring MD from Last 3 Months Immunizations Immunization Administration Dates Next Due HPV 9-Valent 02/14/2022 Hep A, Adult 07/05/2024,08/14/2023 Hep B, adult 09/02/2024,07/05/2024 HepB-CpG 08/14/2023 Influenza Injectable Quadriv alant Preservative Free IIV4 MDCK 08/28/2023 Influenza injectable quadrivalent preservative f ree 07/18/2022,06/17/2017 Influenza, seasonal, injectable, preservative fr ee 08/02/2025,07/05/2024 MMR 05/27/2024 Meningococcal Polysaccharide A,C,Y,W-135 TT Conj ugate 05/27/2024 Pfizer Covid-19 Vaccine 12+ 07/05/2024 Pneumococcal Conjugate PCV 20 08/17/2024 Tdap 08/28/2023,07/15/2017 Varicella 05/27/2024 Family History Medical History Relation Name Comments Diabetes Brother Diabetes Mother Relation Name Status Comments Brother Mother Social History Tobacco Use Types Packs/Day Years Used Date Smoking Tobacco: Every Day Cigarettes Smokeless Tobacco: Never Tobacco Cessation:Ready to Q uit: Not Asked; Counseling Given: Not Answered Depression Answer Date Recorded Patient Health Questionnaire-9 [...] not to disclose 2021 10:40 AM EDT Last Filed Vital Signs Vital Sign Reading [...] Mass Index 33.95 08/02/2025 11:09 AM EST Plan of Treatment Health Maintenance Due Date Last Done Comments HPV Vaccines (2 - 3-dose series) 03/14/2022 02/14/2022 Diabetes: Hemoglobin A1C 06/15/2025 025, 06/15/2024, 09/10/2023, Additional history exists Disability Screening 11/30/2025 11/30/2024 Alcohol/Substance Use Screening 08/02/2026 08/02/2025 Depression Screening 08/02/2026 08/02/2025, 08/02/20 25 Family Planning (PISQ) 08/02/2026 08/02/2025 SDOH Screening 08/02/2026 08/02/2025 Tobacco Screening 08/02/2026 08/02/2025 Cervical Cancer Screening 08/14/2026 Pap Smear 08/14/2026 08/14/2023 HPV/Cotest 08/14/2028 08/14/2023 Lipid Panel 07/28/2029 07/28/2024, 05/29, 09/10/2023, Additional history exists DTaP/Tdap/Td Vaccines (3 - Td or Tdap) 08/28/2033 08/28/2023, 07/15/2017 Zoster Vaccines (1 of 2) 2045 RSV Patients and Patients Aged 60 years or older (1 - 1-dose 75+ series) 2070 Meningococcal Vaccine Aged Out 05/27/2024 No eufemia arlin eligible based on patient's age to complete this topic COVID-19 Vaccine Completed 07/05/2024 Hepatitis A Vaccines Aged Out 07/05/2024, 08/14/20 No longer eligible based on patient's age to complete this topic HIV Screening Completed 08/17/2024, 06/30, 07/18/2022, Additional history exists Hepatitis C Screening Completed 08/17/2024 , 07/28/2024, 05/20/2023, Additional history exists Pneumococcal Vaccine: Pediatrics (0 to 5 Years) and At-Risk Patients (6 to 49) Years Completed 08/17/2024 Hepatitis B Vaccines Completed 09/02/2024, 07/05/2024, 08/14/2023 Influenza Vaccine Completed 08/02/2025, , 08/28/2023, Additional history exists HIB Vaccines Aged Out No longer eligi ble based on patient's age to complete this topic IPV Vaccines Aged Out No longer eligi ble based on patient's age to complete this topic Meningococcal B Vaccine Aged Out No l onger eligible based on patient's age to complete this topic RSV under 20 months Aged Out No longe r eligible based on patient's age to complete this topic Rotavirus Vaccines Aged Out No longer eligible based on patient's age to complete this topic Procedures Procedure Name Priority Date/Time Associated Diagnosis Comments HEMOGLOBIN A1C Routine 08/03/2025 10:26 AM EST Prediabetes POCT , URINE Routine 08/02/2025 11:59 AM EST Routine screening for STI (sexually transmitted infection) HEPATITIS C AB W/REFL TO HCV RNA, QN, PCR Routine 08/17/2024 3:07 PM EST Routine screening for STI (sexually transmitted infection) HIV 1/2 ANTIGEN/ANTIBODY, FOURTH GENERATION W/RFL Routine 08/17/2024 3:07 PM EST Routine screening for STI (sexually transmitted infection) LIPID PANEL, STANDARD Routine 07/28/2024 10:44 AM EDT Dyslipidemia HPV MRNA E6/E7 REFLEX TO HPV 16, 18/45 Routine 08/14/2023 9:00 AM EST PAP SMEAR Routine 08/14/2023 9:00 AM EST from Last 3 Months or Most Recently Relevant to Health Maintenance Results * Hemoglobin A1c (08/03/2025 10:26 AM EST) Hemoglobin A1c 5.8 <6.0 % [facility] Comment:Hemoglobin A1C Refer ence Range Adults: 4.8 - 6.0 % Non diabetic: < 6.0 % Goal: < 7.0 %Additional Action Suggested: > 8.0 %Note: Hemoglobin A1c results are invalid for patients with abnormal amounts of HbF. Blood transfusions may impact the HbA1c concentration in the patient sample. Estimated Average Glucose 120 mg/dL [facility] Comment:eAG = Estimated ave rage glucose which is %A1C expressed asaverage glucose, using the formula of the O6B-KkhxfnhOvdkmvy Glucose study (ADAG), Diabetes Care, Vol.31,#8,Apr. 2007 Blood Venous blood specimen / Unknown 08/03/2025 10:26 AM EST 08/03/2025 11:16 AM EST Natalia Spring MD LAB BLOOD ORDERABLES Final Result [facility] [address] [place] [phone] * POCT , urine manually resulted (08/02/2025 11:59 AM EST) Pathologist [facility] [place] Preg Test, Ur Negative Negative, Indeterminate, None Detected, Invalid, Specimen unsatisfactory for evaluation, Weakly Positive, 2+ QC Media Lot # [id number] Lot# Expiration Date [id number] Urine 08/02/2025 11:5 9 AM EST Natalia Spring MD POINT OF CARE TEST ENTER/E DIT ORDERABLES Final Result * Hepatitis C Antibody with Reflex to HCV, RNA, Quantitative, Real-Time PCR (08/17/2024 3:07 PM EST) Pathologist [facility] [place] Hepatitis C Antibody Nonreactive Nonreactive [facility] Comment:Antibodies to HCV no t detected; does not exclude early acuteHCV infection. Blood Venous blood specimen / Unknown 08/17/2024 3:07 PM EST 08/17/2024 4:27 PM EST Natalia Spring MD LAB BLOOD ORDERABLES Final Result Performing Organization Address City/[facility]/ZIP Co de Phone Number [facility] [address] [place] [address] [phone] * HIV-1/2 Antigen and Antibodies, Fourth Generation, with Reflexes (08/17/2024 3:07 PM EST) HIV AB/AG Nonreactive Nonreactive [facility] Comment:HIV-1 p24 Ag and/or HIV-1/HIV-2 Ab not detected.A test result that is nonreactive does not exclude thepossibility of exposure to or infection with HIV-1 and/orHIV-2. Nonreactive results in this assay for individualswith prior exposure to HIV-1 and/or HIV-2 may be due toantigen and antibody levels that are below the limit ofdetection of this assay.The A-Gas HIV Ag/Ab Combo assay result andsupplemental assay results should be interpreted inconjunction with the patient's clinical presentation,history and other laboratory results. If the results areinconsistent with clinical evidence, additional testing issuggested to confirm the result. Blood Venous blood specimen / Unknown 08/17/2024 3:07 PM EST 08/17/2024 4:27 PM EST Natalia Spring MD LAB BLOOD ORDERABLES Final Result Performing Organization Address City/[facility]/ZIP Co de Phone Number [facility] [address] [place] [phone] [phone] * (ABNORMAL) Lipid Panel, Standard (07/28/2024 10:44 AM EDT) Triglycerides 251(H) <150 mg/dL [facility] Comment:Desirable Triglyceri de: less than 150 mg/dLBorderline High Triglyceride 150-199 mg/dLHigh Triglyceride: 200-499 mg/dLVery High Triglyceride: greater than or equal to 5OO mg/dL Cholesterol 284(H) <200 mg/dL [facility] Comment:Desirable Cholestero l: less than 200 mg/dLBorderline High Cholesterol: 200-239 mg/dLHigh Cholesterol: greater than 239 mg/dL LDL Cholesterol Calculated 192(H) <100 mg/dL [facility] Comment:Desirable LDL: less than 100 mg/dLNear Optimal/Above Optimal LDL: 110- 129 mg/dLBorderline High LDL: 130-159 mg/dLHigh LDL: 160-189 mg/dLVery High LDL: greater than or equal to 190 mg/dL HDL Cholesterol 42 >40 mg/dL [facility] Comment:Desirable HDL: great er than 40 mg/dL Note: This HDL assay may give artificially low results in patients with liver disease. Blood Venous blood specimen / Unknown 07/28/2024 10:44 AM EDT 07/28/2024 1:24 PM EDT us Natalia Spring MD LAB BLOOD ORDERABLES Final Result [facility] [address] [place] [phone] * HPV mRNA E6/E7 w/Reflex to HPV Genotypes 16, 18/45 (08/14/2023 9:00 AM EST) HPV nRNA E6/E7 Not Detected Not Detected [facility] Comment:Methodology: Transcr iption-Mediated AmplificationThis assay detects E6/E7 viral messenger RNA (mRNA) from 14high-risk HPV types (16,18,31,33,35,39,45,51,52,56,58,59,66,68).Cervical sources are required for HPV testing.If a vaginal source from a patient who has had atotal hysterectomy with removal of cervix wassubmitted, please contact the testing laboratoryfor alternative testing options.For additional information, please refer [email or web address]/faq/DZU940e5(This link if provided for information/educational purposes only.)THIS TEST WAS PERFORMED AT:[facility] [place] [phone] WARE MD HPV mRNA E6/E7 TNP [facility] HPV 16 RNA TNP [facility] HPV 18/45 RNA TNP [facility] 08/14/2023 9:00 AM EST 08/18/2023 10:30 AM EST us Natalia Spring MD LAB CYTOLOGY ORDERABLES Fi nal Result [facility] [address] [place] [phone] * Pap Smear (08/14/2023 9:00 AM EST) 08/14/2023 9:00 AM EST 08/18/2023 10:30 AM EST Narrative [facility] - 09/01/2023 7:57 AM EST ----- ------- Name: Madie Chacon Age/Sex: 28/F : 1995 Unit#: [id number] Attend Dr: Natalia Spring MD Re08/14/23 Status: DEP REF Location: .[facility] Disch: ----- ------- SPEC : [id number] RECD: 08/18/23 STATUS: SANDRA ERICKSON NUM: [id number] TONJA: 08/14/[address] [facility] [address]: Natalia Spring MD ENTERED: 08/18/23 SP TYPE: Pap Smr OTHR DR: María White DO ORDERED: Pap Smear Interpretation Satisfactory for evaluation. No endocervical cells seen. Negative for intraepithelial lesion or malignancy. HPV mRNA E6/E7: NOT DETECTED This assay detects E6/E7 viral messenger RNA (mRNA) from 14 high-risk HPV types (16, 18, 31, 33, 35, 39, 45, 51, 52, 56, 58, 59, 66, 68) HPV testing performed by [facility], [place], [place]. See reference laboratory portion of the EMR for entire report. Clinical Information LMP: Unknown date Previous PAP test: Unknown date/findings Material Received ThinPrep-Cervical Copies To: Natalia Spring MD [address] [place], [place] [id number] María White DO [address] [place] [address] ----- ------- Signed (signature on file) ALAN Matson (ASCP) 09/01/23 0757 ----- ------- END OF REPORT Natalia Spring MD LAB CYTOLOGY ORDERABLES nal Result [facility] [address] [place] [address] [phone] from Last 3 Months or Most Recently Relevant to Health Maintenance Insurance [facility] C3 Care Teams Visual Merchandising Associate Relationship Specialty Start Date End Date Clementine, MD Natalia [address] [place] [address] PCP - General Family Medicine 06/18/22
--- OUTSIDE RECORDS SUMMARY | 2025-08-03 11:59 | XMS_ITS | Clinical Summary ---
Author Organization [facility] Address [address] [place] [address] Phone Care Team Providers Care Data Transcriber Name Role Phone Natalia Spring MD Primary Care Provider [phone]- [phone] Allergies No known active allergies Social History Tobacco Use Types Packs/Day Years Used Date Smoking Tobacco: Never Assessed Comments Unknown Sex and Gender Information Value Date Recorded Sex Assigned at Female 11/21/2024 1:38 AM EST Legal Sex Female 3:00 AM EST Gender Identity Female 11/21/2024 1:38 AM EST Sexual Orientation Straight 11/21/2024 1: 38 AM EST Last Filed Vital Signs Vital Sign Reading Time Taken Comments Blood Pressure 115/65 11/20/2024 11:58 PM EST Pulse 124 11/20/2024 11:58 PM EST Temperature 39.3 C (102.7 F) 11/20/2024 11:58 PM EST Respiratory Rate 20 11/20/2024 11:58 PM EST Oxygen Saturation 96% 11/20/2024 11:58 PM EST Inhaled Oxygen Concentration - - Weight 81.6 kg (180 lb) 11/20/2024 7:35 PM EST Height 160 cm (5' 3 ) 11/20/2024 7:35 PM EST Body Mass Index 31.89 11/20/2024 7:35 PM EST Plan of Treatment Health Maintenance Due Date Last Done Comments HPV Vaccines (2 - 3-dose series) 03/14/2022 02/14/2022 Depression Screening 09/28/2024 Social Influencers of Health Screening 11/21/2024 Influenza Vaccine (#1) 2025 , 08/28/2023, 07/18/2022, Additional history exists Cervical Cancer Screening: Pap Smear 08/14/2026 08/14/2023 Cholesterol Screening (Lipid Panel) 07/28/2029 07/28/2024 DTaP,Tdap,and Td Vaccines (3 - Td or Tdap) 08/28/2033 08/28/2023, 07/15/2017 RSV Immunization Adult Patients (1 - 1-dose 75+ series) 2070 MMR Vaccines Aged Out 05/27/2024 No longer eligi ble based on patient's age to complete this topic Meningococcal ACWY Vaccine Aged Out 05/27/2024 N o longer eligible based on patient's age to complete this topic Varicella Vaccines Aged Out 05/27/2024 No longer eligible based on patient's age to complete this topic COVID-19 Vaccine Completed 07/05/2024 Hepatitis A Vaccines Aged Out 07/05/2024, 08/14/20 23 No longer eligible based on patient's age to complete this topic HIV Screening Completed 08/17/2024 Hepatitis C Screening Completed 08/17/2024, 021 Pneumococcal Vaccine: Pediatrics (0 to 5 Years) and At-Risk Patients (6 to 49 Years) Completed 08/17/2024 Hepatitis B Vaccines Completed 09/02/2024, 07/05/2024, 08/14/2023 HIB Vaccines Aged Out No longer eligi ble based on patient's age to complete this topic IPV Vaccines Aged Out No longer eligi ble based on patient's age to complete this topic Meningococcal B Vaccine Aged Out No l onger eligible based on patient's age to complete this topic RSV Immunization Patients Under 20 months Aged Out No longer eligible based on patient's age to complete this topic Insurance [place] - [place] Care Teams Data Transcriber Relationship Specialty Start Date End Date Clementine, MD Natalia [address] [place] [id number] PCP - General Family Medicine 11/21/24
[2025-08-03 12:05] LABS: HBc Num1 0.70 S/CO (0.00-0.79); HBsAGNum1 0.35 S/CO (0.00-0.99); Hepatitis A Antibody IgM 0.29 Index (0-0.79); Hepatitis B Surface Antigen Negative (Negative); ~HepC Num1 0.11 S/CO (0.00-0.79); ~Hepatitis A Antibody IgM Nonreactive (Nonreactive); ~Hepatitis B Surface Antibody REACTIVE (Nonreactive); ~Hepatitis C Antibody Nonreactive (Nonreactive)
[2025-08-03 12:08] LABS: Alanine Aminotransferase 315 U/L (0-31); Albumin Level 4.9 g/dL (3.5-5.0); Alkaline Phosphatase 147 U/L (39-117); Anion Gap 10 (12-20); Aspartate Amino Transferase 104 U/L (5-31); Blood Urea Nitrogen 13 mg/dL (9-16); Calcium 9.5 mg/dL (8.4-10.2); Carbon Dioxide 24 mmol/L (22-29); Chloride 109 mmol/L (96-108); Cholesterol 339 mg/dL (<200); Estimated Glomerular Filt Rate > 60; Ferritin 106 ng/mL (10-122); HDL Cholesterol 43 mg/dL (>40); Iron 102 mcg/dL (30-160); Percent Iron Saturation 27 % (15-50); Potassium 4.2 mmol/L (3.3-5.1); Sodium 139 mmol/L (135-145); Total Iron Binding Capacity 382 mcg/dL (228-428); Total Protein 8.1 g/dL (6.5-8.0); Triglycerides 180 mg/dL (<150); Unsaturated Iron Binding 280 ug/dL
[2025-08-03 13:53] LABS: CT PCR Urine NOT DETECTED (Not Detect.); NG PCR Urine NOT DETECTED (Not Detect.)
[2025-08-08 14:38] LABS: Testosterone, Free 17.7 pg/mL (0.1-6.4)
[2025-08-10 16:33] LABS: Anti Nuclear Antibody Pattern Nuclear, Speckled; Anti Nuclear Antibody Screen POSITIVE (NEGATIVE); Anti Nuclear Antibody Titer 1:40 titer
== END 2025-08-03 10:17 | disposition home or self-care (01) ==
LOC: HO.HHCL 10:16
PROVIDERS: Nurse Practitioner Primary Care; PCP Family Medicine; Visit Provider Family Medicine
DX: Z11.59 Encounter for screening for other viral diseases (principal); Z20.2 Contact with and (suspected) exposure to infections with a predominantly sexual mode of transmission; R74.01 Elevation of levels of liver transaminase levels; E55.9 Vitamin D deficiency, unspecified; E88.810 Metabolic syndrome; E78.5 Hyperlipidemia, unspecified; R79.89 Other specified abnormal findings of blood chemistry
CPT/HCPCS: 36415; 80048; 80061; 80076; 82105; 82306; 82390; 82728; 83036; 83540; 84402; 84403; 86015; 86038; 86039; 86381; 86704; 86706; 86709; 86803; 87340; 87491; 87591